=== PATIENT | male | born 1930 | race Caucasian/White ===

== ENCOUNTER 2017-09-02 23:35 | Inpatient (IN) ==
--- NOTE | 2017-09-03 00:18 | Emergency Department Note ---
GI Bleed HPI - General Chief complaint: Rectal Bleed Stated complaint: rectal bleeding Time Seen by Provider: 09/03/17 00:16 Source: patient Mode of arrival: ambulatory - History of Present Illness HPI Narrative: This 87-year-old gentleman comes emergency room with history of 3 episodes of blood in his stool this evening the first was with gross blood in nearly liquid stool at around 6 PM. Approximately an hour later he had a softer type of a bowel movement with some blood in it and a third episode a little later. These have not been associated with any dizziness or shortness of breath. He reports a colonoscopy 30 years ago that they did find some polyps. REVIEW OF SYSTEMS: No fevers chills or sweats. No chest pain. No shortness of breath. No abdominal pain or nausea or vomiting. He has had some constipation off and on the past and for this takes a stool softener. He recently had to have some stool dugout. He denies acid reflux. He denies dysuria. No back pain. He did have some leg pain that improved with water intake. No rashes. No anxiety or depression. - Related Data Home Medications Medication Instructions Recorded Confirmed aspirin 81 mg tablet,delayed 81 mg PO QDAY tab 12/21/14 08/28/17 release centrum silver See Dose Instructions PO QDAY 12/21/14 08/28/17 Previous Rx's Medication Instructions Recorded furosemide 40 mg tablet 40 mg PO .COMPLEX #90 tab 11/05/16 isosorbide mononitrate ER 60 mg 60 mg PO QAM #30 tab 11/05/16 tablet,extended release 24 hr clonidine HCl 0.2 mg tablet 0.2 mg PO BID #60 tab 11/16/16 niacin ER 500 mg tablet,extended 500 mg PO QHS #30 tab 11/20/16 release 24 hr potassium chloride ER 10 mEq 10 meq PO BID #60 tab 01/29/17 tablet,extended release atenolol 50 mg tablet 25 mg PO QAM #45 tab 07/04/17 diltiazem ER (XR/XT) 120 mg 120 mg PO QDAY 90 Days #90 cap 07/04/17 capsule,extended release 24 hr, controlled irbesartan 300 mg tablet 300 mg PO QDAY 90 Days #90 tab 07/04/17 tamsulosin 0.4 mg capsule 0.4 mg PO BID #180 cap 07/16/17 pravastatin 40 mg tablet 40 mg PO QDAY 90 Days #90 tab 07/29/17 doxycycline hyclate 100 mg tablet 100 mg PO BID #20 tab 08/28/17 furosemide 40 mg tablet 40 mg PO QDAY #5 tab 08/28/17 silver sulfadiazine 1 % topical 1 applic TOPICAL BID #50 g 08/28/17 cream fish oil See Label Instructions .ROUTE 08/29/17 .COMPLEX #90 move free 1 tab PO BID #60 08/29/17 Allergies Allergy/AdvReac Type Severity Reaction Status Date / Time mirabegron [From Myrbetriq] Allergy Intermediate Rash Verified 08/28/17 15:06 Past Medical History - Past Medical History Medical history: Reports: cancer (colon - partial colectomy. Basal cell CA multiple sites.), CHF, coronary artery disease, hyperlipidemia, hypertension, other (Bracycardia. BPH. Monoclonal gammopathy. Diverticulitis.). Denies: CVA Psychiatric history: Denies: anxiety, depression Surgical history ED: Reports: angioplasty/stent, colectomy (partial), coronary bypass (CABG) Family history: Reports: cancer (Brother with brain tumor. Brother with cardiovascular disease. Brother with prostate cancer who from this. Lymphoma in a sister.) - Social History smoking status: Former smoker Alcohol use: Reports: Rarely (Holiday and special occasions only.), Occasionally Drug use: Reports: none Course Vital Signs Temperature 97.0 F 09/02/17 23:36 Pulse Rate 72 09/02/17 23:36 Respiratory Rate 18 09/02/17 23:36 Blood Pressure 148/69 09/02/17 23:36 Pulse Oximetry (%) 97 09/02/17 23:36 Temperature 97.0 F 09/02/17 23:36 Pulse Rate 70 09/03/17 07:16 Respiratory Rate 16 09/03/17 07:16 Blood Pressure 166/61 09/03/17 07:16 Pulse Oximetry (%) 100 09/03/17 07:16 GI Bleed - [facility] Narrative Medical decision making narrative: 11:45 PM 09/02/17 This 87-year-old male comes in with describing hematochezia and melanotic stool and no other new symptoms. His initial evaluation includes an elevated BUN of 41 where his past year have been in the 30s. His creatinine is 2.0 but the past year been 1.9. His hemoglobin is 10.1 and this is lower than his recent past year of low-grade anemia in the 12's and previous to that 's. He does have chronic renal failure and a history of congestive heart failure etc. but no specific signs or symptoms of acute exacerbation of any of his other medical problems. He is otherwise fairly asymptomatic. He is not on any anticoagulants except for a baby aspirin daily. While in the emergency room has several additional episodes of bowel movements with mild to moderate amount of melanotic or black-red stool material. Also several times incontinent in bed with the same. Orthostatics were unremarkable. 1:00 AM 1 Liter of NS given. 6:25 AM Daughter reports patient lives alone, is sometimes incontinent or some difficulties with lasix in AM and making it to toilet, etc., illustrating difficulty of G-I colon clean-out would be impractical or inappropriate at home. 6:30 AM A 4 hour CBC demonstrates no change in his hemoglobin/hematocrit at 10.0 hemoglobin. 7:00 AM I spoke with GI doctor Dr. Ruiz, who agrees that patient needs further evaluation. He points out that there are signs indicating possible upper GI bleed versus lower GI bleed and that doing an EGD first seems reasonable with his other medical problems as this is less aggressive/invasive. With multiple medical problems, it is appropriate for him to be further evaluated by hospitalist and admitted to a monitored bed which is arranged for; Dr. Alvarez kindly accepts care of this patient. 7:15 AM Repeat exam includes jolly disposition, no vitals instability, and no pain; no further melena since around 4:12 AM. Comments on diagnoses: 1. -- It is uncertain and unspecified whether he has an upper GI or lower GI bleed but certainly has had one or the other. See above. 2. -- Has a history of hypercalcemia. His labs on admission were 10.5 so this was minimal. 3. -- His dermatitis of his legs and arms is most significant on his legs but is not acutely infectious/inflammatory in appearance. Reportedly he left his compression hose on for multiple days in a row without removing them and this contributed. He is on doxycycline twice daily or at least has been recently. 4. -- Has a history of a partial colectomy so presumably did have either multiple large polyps or precancerous or cancerous lesion. In his list of his malignant neoplasm of the colon. 5. -- No mention is made in his past medical history of hypoxia or nocturnal hypoxia. He was witnessed in bed to down to 87% while resting. Per his daughter, he normally sleeps in a recliner and not in bed in this due to his history of congestive heart failure and orthopnea. - Lab Data Result diagrams: 09/03/17 04:36 09/03/17 00:24 Lab Results 09/03/17 09/03/17 09/03/17 Range/Units 00:24 00:24 00:24 WBC 7.4 (4.5-11.0) K/mcL RBC 3.42 L (4.50-5.90) M/mcL Hgb 10.1 L (13.5-16.5) g/dL Hct 30.5 L (41.0-55.0) % MCV 89.2 (80.0-100.0) fL MCH 29.5 (26.0-34.0) pg MCHC 33.1 (31.0-36.0) g/dL RDW 14.7 H (11.5-14.5) % Plt Count 214 (140-440) K/mcL MPV 7.5 (7.4-10.4) fL Gran % 75.7 (38.0-78.0) % Lymph % (Auto) 12.1 L (15.5-49.0) % [place] % (Auto) 10.1 (1.0-12.0) % Eos % (Auto) 1.5 (0.0-7.0) % Baso % (Auto) 0.6 (0.0-2.0) % Gran # 5.7 (1.8-8.0) K/mcL Lymph # (Auto) 0.9 L (1.5-4.8) K/mcL [place] # (Auto) 0.7 (0.1-0.9) K/mcL Eos # (Auto) 0.1 (0.0-0.7) K/mcL Baso # (Auto) 0 (0.0-0.3) K/mcL PT 14.9 H (11.9-14.5) sec INR 1.2 H (0.9-1.1) APTT 44 H (20-37) sec Sodium 140 (133-145) mmol/L Potassium 4.1 (3.3-5.1) mmol/L Chloride 102 (96-108) mmol/L Carbon Dioxide 26 (22-30) mmol/L Anion Gap 12.0 (8-16) BUN 41 H (8-23) mg/dl Creatinine 2.0 H (0.7-1.2) mg/dl GFR Calculation 29 Glucose 126 H (70-105) mg/dL Calcium 10.5 H (8.6-10.4) mg/dl Total Bilirubin 0.4 (0.0-1.0) mg/dL AST 23 (0-37) U/l ALT 15 (0-40) U/l Alkaline Phosphatase 61 (39-117) U/L Total Protein 6.2 (5.9-8.4) gm/dL Albumin 3.3 (3.2-5.2) gm/dL Globulin 2.9 (2.2-3.7) gm/dL Albumin/Globulin Ratio 1.1 (1.0-2.3) 09/03/17 Range/Units 04:36 WBC 7.0 (4.5-11.0) K/mcL RBC 3.33 L (4.50-5.90) M/mcL Hgb 10.0 L (13.5-16.5) g/dL Hct 30.2 L (41.0-55.0) % MCV 90.8 (80.0-100.0) fL MCH 30.1 (26.0-34.0) pg MCHC 33.1 (31.0-36.0) g/dL RDW 15.8 H (11.5-14.5) % Plt Count 190 (140-440) K/mcL MPV 8.0 (7.4-10.4) fL Gran % 74.7 (38.0-78.0) % Lymph % (Auto) 13.0 L (15.5-49.0) % [place] % (Auto) 9.2 (1.0-12.0) % Eos % (Auto) 2.8 (0.0-7.0) % Baso % (Auto) 0.3 (0.0-2.0) % Gran # 5.2 (1.8-8.0) K/mcL Lymph # (Auto) 0.9 L (1.5-4.8) K/mcL [place] # (Auto) 0.6 (0.1-0.9) K/mcL Eos # (Auto) 0.2 (0.0-0.7) K/mcL Baso # (Auto) 0 (0.0-0.3) K/mcL PT (11.9-14.5) sec INR (0.9-1.1) APTT (20-37) sec Sodium (133-145) mmol/L Potassium (3.3-5.1) mmol/L Chloride (96-108) mmol/L Carbon Dioxide (22-30) mmol/L Anion Gap (8-16) BUN (8-23) mg/dl Creatinine (0.7-1.2) mg/dl GFR Calculation Glucose (70-105) mg/dL Calcium (8.6-10.4) mg/dl Total Bilirubin (0.0-1.0) mg/dL AST (0-37) U/l ALT (0-40) U/l Alkaline Phosphatase (39-117) U/L Total Protein (5.9-8.4) gm/dL Albumin (3.2-5.2) gm/dL Globulin (2.2-3.7) gm/dL Albumin/Globulin Ratio (1.0-2.3) Disposition Pt seen by [facility]/PA only: No Clinical Impression: Hematochezia, Melena, Hypertension, essential, Renal insufficiency, mild, History of partial colectomy, Hypercalcemia, Dermatitis CAD (coronary artery disease) Qualifiers: Coronary Disease-Associated Artery/Lesion type: unspecified vessel or lesion type [place] vs. transplanted heart: [place] heart Associated angina: without angina Qualified Code(s): I25.10 - Atherosclerotic heart disease of [place] coronary artery without angina pectoris CHF (congestive heart failure) Qualifiers: Heart failure type: unspecified Heart failure chronicity: chronic Qualified Code(s): I50.9 - Heart failure, unspecified Hyperlipidemia Qualifiers: Hyperlipidemia type: unspecified Qualified Code(s): E78.5 - Hyperlipidemia, unspecified Mitral valve regurgitation Qualifiers: Cardiac valve disease etiology: etiology unspecified Qualified Code(s): I34.0 - Nonrheumatic mitral (valve) insufficiency Disposition: Xfer As Inpt ([facility]) Condition: Fair Referrals: Rob Robison MD [Primary Care Provider] -
[2017-09-03 01:00] LABS: Basophils # (Auto) 0 K/mcL (0.0-0.3); Basophils % (Auto) 0.6 % (0.0-2.0); Eosinophils # (Auto) 0.1 K/mcL (0.0-0.7); Eosinophils % (Auto) 1.5 % (0.0-7.0); Granulocytes % (Auto) 75.7 % (38.0-78.0); Lymphocytes # (Auto) 0.9 K/mcL (1.5-4.8); Lymphocytes % (Auto) 12.1 % (15.5-49.0); Mean Cell Volume 89.2 fL (80.0-100.0); Mean Corpuscular HGB Conc 33.1 g/dL (31.0-36.0); Mean Corpuscular Hemoglobin 29.5 pg (26.0-34.0); Monocytes # (Auto) 0.7 K/mcL (0.1-0.9); Monocytes % (Auto) 10.1 % (1.0-12.0); Platelet Count 214 K/mcL (140-440); RBC 3.42 M/mcL (4.50-5.90); Red Cell Distribution Width 14.7 % (11.5-14.5)
[2017-09-03 01:10] LABS: ALT/SGPT 15 U/l (0-40); Albumin 3.3 gm/dL (3.2-5.2); Albumin/Globulin Ratio 1.1 (1.0-2.3); Alkaline Phosphatase 61 U/L (39-117); Blood Urea Nitrogen 41 mg/dl (8-23)
[2017-09-03] MEDS ORDERED: 0.9 % SODIUM CHLORIDE 1,000 ML IV ONE (01:25)
[2017-09-03 05:16] LABS: Basophils # (Auto) 0 K/mcL (0.0-0.3); Basophils % (Auto) 0.3 % (0.0-2.0); Eosinophils # (Auto) 0.2 K/mcL (0.0-0.7); Eosinophils % (Auto) 2.8 % (0.0-7.0); Granulocytes % (Auto) 74.7 % (38.0-78.0); Lymphocytes # (Auto) 0.9 K/mcL (1.5-4.8); Mean Cell Volume 90.8 fL (80.0-100.0); Mean Corpuscular HGB Conc 33.1 g/dL (31.0-36.0); Mean Corpuscular Hemoglobin 30.1 pg (26.0-34.0); Monocytes # (Auto) 0.6 K/mcL (0.1-0.9); Monocytes % (Auto) 9.2 % (1.0-12.0); Platelet Count 190 K/mcL (140-440); RBC 3.33 M/mcL (4.50-5.90); Red Cell Distribution Width 15.8 % (11.5-14.5)
[2017-09-03] MEDS ORDERED: PANTOPRAZOLE 40 MG VIAL IV ONE ×2 (07:33→07:36)
--- NOTE | 2017-09-03 08:10 | Internal Med History&Physical ---
Medical - H&P: HPI Patient information: Note initiated : 09/03/17 at 8:07 am Service Date, if different from initiated Date: [] Patient: Laz Junior a 87 y/o M admitted on for Rectal Bleed. Chief Complaint: [] History of present illness: Mr. Junior is a 87 year old M ith history of heart failure, presents to the emergency room for evaluation after a bloody bowel movement. The patient notes that he noticed blood in his stools yesterday evening around 6 PM. He is at 2 more episodes since then. The stools are mixed and blurred, appears to be dark maroon color. The patient drove himself to the emergency for further evaluation. It seems like he had bowel movements mixed with blood given in the emergency room. He is unable to quantify the amount of blood loss or tell me if there were any blood clots in the stool. He is unable to clearly explain if he has any dark melanotic stools but does note his stools are mckinley pie in color. The patient admits to having some dizziness when he tries to stand up, but no other acute symptoms. He denies any headache, changes in vision or hearing or difficulty in swallowing , he denies any chest pain or acute shortness of breath, no nausea no abdominal pain no vomiting, he usually suffers from constipation, but thought he was having some diarrhea with the bloody stools. The patient has chronic joint pains but no acute joint swelling or skin rashes. He is trying to work with his doctor for lower extremity infection right more than the left extremity. The patient denies any urinary complaints. Denies any fever or chills. He takes a baby aspirin, he is not on Coumadin, he takes Tylenol for pain and denies any use of NSAID use, denies active use of alcohol, denies any dyspeptic symptoms recently In the emergency room the patient was noted to be mildly anemic, approximately 3 g of hemoglobin from his last hemoglobin check. The patient has negative orthostatics, hemodynamically was noted to be stable. Dr. JOSE will plan to do an EGD scoping today and then likely a colonoscopy down the line. IV PPIs initiated. Given his GI bleed, nearly 3 g drop in hemoglobin and significant comorbidities and advanced age he will be admitted to PCU status for close monitoring All systems: reviewed and no additional remarkable complaints except as stated ( as per HPI) Medical - H&P: PMH Medical history: Medical History (Last Reviewed 07/16/17 @ 11:04 by Summer Lock RN) UTI (urinary tract infection) (Resolved) CHF (congestive heart failure) (Chronic) Bradycardia (Chronic) Urinary hesitancy due to benign prostatic hyperplasia (Chronic) Monoclonal gammopathy (Chronic) Hypertension, essential (Chronic) Hyperlipidemia (Chronic) Diverticulitis of colon (Chronic) Malignant neoplasm of rectosigmoid (colon) (Resolved) CAD (coronary artery disease) (Chronic) Basal cell carcinoma (Chronic) Surgical history: Past Surgical History (Last Reviewed 07/16/17 @ 11:04 by Summer Lock RN) History of colonoscopy with polypectomy (Resolved) Status post biopsy of skin (Resolved) Status post Mohs surgery (Resolved 10/12/14) History of coronary artery bypass graft (Resolved) History of colectomy (Resolved) History of cardiac catheterization (Resolved 03/16/98) History of angioplasty (Resolved) Pertinent family history: Family History (Last Reviewed 07/16/17 @ 11:04 by Summer Lock RN) Brother (younger) Family history of malignant neoplasm in brother Brother (older) Family history of cardiovascular disease Brother Family history of malignant neoplasm of prostate Sister Family history of malignant lymphatic neoplasm Medical - H&P: Meds Home Medications Medication Instructions Recorded Confirmed Type aspirin 81 mg tablet,delayed 81 mg PO QDAY tab 12/21/14 08/28/17 History release centrum silver See Dose Instructions PO QDAY 12/21/14 08/28/17 History furosemide 40 mg tablet 40 mg PO .COMPLEX #90 tab 11/05/16 08/28/17 Rx isosorbide mononitrate ER 60 mg 60 mg PO QAM #30 tab 11/05/16 08/28/17 Rx tablet,extended release 24 hr clonidine HCl 0.2 mg tablet 0.2 mg PO BID #60 tab 11/16/16 08/28/17 Rx niacin ER 500 mg tablet,extended 500 mg PO QHS #30 tab 11/20/16 08/28/17 Rx release 24 hr potassium chloride ER 10 mEq 10 meq PO BID #60 tab 01/29/17 08/28/17 Rx tablet,extended release atenolol 50 mg tablet 25 mg PO QAM #45 tab 07/04/17 08/28/17 Rx diltiazem ER (XR/XT) 120 mg 120 mg PO QDAY 90 Days #90 cap 07/04/17 08/28/17 Rx capsule,extended release 24 hr, controlled irbesartan 300 mg tablet 300 mg PO QDAY 90 Days #90 tab 07/04/17 08/28/17 Rx tamsulosin 0.4 mg capsule 0.4 mg PO BID #180 cap 07/16/17 08/28/17 Rx pravastatin 40 mg tablet 40 mg PO QDAY 90 Days #90 tab 07/29/17 08/28/17 Rx doxycycline hyclate 100 mg tablet 100 mg PO BID #20 tab 08/28/17 08/28/17 Rx furosemide 40 mg tablet 40 mg PO QDAY #5 tab 08/28/17 08/28/17 Rx silver sulfadiazine 1 % topical 1 applic TOPICAL BID #50 g 08/28/17 08/28/17 Rx cream fish oil See Label Instructions .ROUTE 08/29/17 Rx .COMPLEX #90 move free 1 tab PO BID #60 08/29/17 Rx Allergies Allergy/AdvReac Type Severity Reaction Status Date / Time mirabegron [From Myrbetriq] Allergy Intermediate Rash Verified 08/28/17 15:06 Medical - H&P: Exam - Constitutional Vitals: Temp Pulse Resp BP Pulse Ox 99.9 F H 65 20 167/74 98 09/03/17 07:48 09/03/17 07:48 09/03/17 07:48 09/03/17 07:48 09/03/17 07:48 Exam: GENERAL: The patient is a well-developed, well-nourished in no apparent distress. Is alert and oriented x3. obese individual VITAL SIGNS: Reviewed and as noted elsewhere. HEENT: Head is normocephalic and atraumatic. Extraocular muscles are intact. Pupils are equal, round, and reactive to light. Nares appeared normal. Mouth appears any without lesions. Mucous membranes are dry NECK: Normal to inspection, Supple, No lymphadenopathy or thyromegaly. LUNGS: Air entry equal on both sides, no wheezing, crackles or rhonchi noted. No accessory muscles of respiration HEART: Regular rate and rhythm normal, S1 and S2 heard, no Gallop, S3 or Rub Noted, systolic murmur in mirtral region. ABDOMEN: Soft, nontender, and nondistended. Positive bowel sounds. No hepatosplenomegaly was noted. had maroon stools in the bathroom. EXTREMITIES: No cyanosis, clubbing, rash, jovani pedal edema+++, Right ower extremity erythema, flaked skin, left lower extrmity flaked skin and some erythema. see picutres in chart NEUROLOGIC: Cranial nerves II through XII are grossly intact. Motor and Sensory System Grossly Intact PSYCHIATRIC: Normal affect, Normal Mood. Appropriate Behavior. SKIN: No ulceration or wounds noted, No jaundice, No rash noted. (except in legs see above) Medical - H&P: Reslt - Labs CBC & Chem 7: 09/03/17 04:36 09/03/17 00:24 Labs: Short CBC 09/03/17 09/03/17 Range/Units 00:24 04:36 WBC 7.4 7.0 (4.5-11.0) K/mcL Hgb 10.1 L 10.0 L (13.5-16.5) g/dL Hct 30.5 L 30.2 L (41.0-55.0) % Plt Count 214 190 (140-440) K/mcL BMP 09/03/17 00:24 Sodium 140 Potassium 4.1 Chloride 102 Carbon Dioxide 26 BUN 41 H Creatinine 2.0 H Glucose 126 H Calcium 10.5 H Liver Function 09/03/17 Range/Units 00:24 Total Bilirubin 0.4 (0.0-1.0) mg/dL AST 23 (0-37) U/l ALT 15 (0-40) U/l Alkaline Phosphatase 61 (39-117) U/L Albumin 3.3 (3.2-5.2) gm/dL Medical - H&P: A/P - Narrative A/P Narrative: A/P Acute GI bleed: Likely lower GI bleed, but cannot rule out upper GIB for sure, he has elevated bun but this is chr elevated from CKD. IV PPI BID for now, Dr Mitchell to perform EGD today. Likely colonoscopy if egd is neg, trend h/h for now. monitor in PCU CHF: not in acute failure, but does have lower extremity edema, able to lie down flat, get cxr chest, IV lasix if noted to congestion. Resume irbesartan once home meds verified. CAD: Hold ASA for now, try to continue isosorbide, beta blockers and statins. CKD/ Hypercalcemia: Chr issue, creat at near baseline, monitor renal function and electrolytes HTN: Resume home meds once bp is noted to be stable. HLD: continue statin DVT SCD Lower extremity wounds: topical silvadene cream for now, resume doxycycline when verified Full code for now. Social History - Tobacco smoking status: Former smoker - Alcohol alcohol intake frequency: holiday/special occasion only - Substance use substance use type: does not use
[2017-09-03] MEDS ORDERED: ONDANSETRON 4 MG/2 ML VIAL IV PRN (09:34)
[2017-09-03] MEDS: SILVER SULFADIAZINE CREAM.TOP 25GM TOPICAL SCH ×2 (10:04→21:40)
[2017-09-03] MEDS: PANTOPRAZOLE 40 MG VIAL IV SCH ×2 (10:04→21:41)
[2017-09-03] MEDS: 0.9 % SODIUM CHLORIDE 10 ML SYRINGE IV SCH ×2 (13:37→21:43)
[2017-09-03] MEDS ORDERED: PROPOFOL 200 MG/20 ML VIAL IV SCH (14:30)
[2017-09-03] MEDS ORDERED: MIDAZOLAM 2 MG/2 ML VIAL IV SCH (14:30)
[2017-09-03] MEDS ORDERED: MIDAZOLAM 2 MG/2 ML VIAL ONE (17:59)
[2017-09-03] MEDS ORDERED: PROPOFOL 20 ML IV ONE (17:59)
[2017-09-03] MEDS ORDERED: PROPOFOL 0 ML IV ONE (17:59)
[2017-09-03] MEDS: cloNIDine HCL 0.1 MG TABLET PO SCH (21:42)
[2017-09-03] MEDS: SIMVASTATIN 20 MG TABLET PO SCH (21:42)
[2017-09-03] MEDS: ACETAMINOPHEN 325 MG TABLET PO PRN (22:28)
[2017-09-04] MEDS: ACETAMINOPHEN 325 MG TABLET PO PRN ×2 (04:43→20:25)
[2017-09-04] MEDS: cloNIDine HCL 0.1 MG TABLET PO SCH ×3 (05:10→20:25)
[2017-09-04] MEDS: ISOSORBIDE MONONITRATE 60 MG TAB.XL.24H PO SCH ×2 (05:11→10:23)
[2017-09-04] MEDS: PANTOPRAZOLE 40 MG VIAL IV SCH ×2 (05:12→07:47)
[2017-09-04] MEDS: TAMSULOSIN 0.4 MG CAPSULE PO SCH ×2 (05:12→10:23)
[2017-09-04] MEDS ORDERED: PEG 3350/NA SULF,BICARB,CL/KCL 4,000 ML ORAL.SOL ONE (05:24)
[2017-09-04] MEDS ORDERED: PEG 3350/NA SULF,BICARB,CL/KCL 4,000 ML ORAL.SOL PO ONE (05:30)
[2017-09-04 06:04] LABS: Basophils # (Auto) 0 K/mcL (0.0-0.3); Basophils % (Auto) 0.4 % (0.0-2.0); Eosinophils # (Auto) 0.4 K/mcL (0.0-0.7); Granulocytes % (Auto) 73.7 % (38.0-78.0); Lymphocytes # (Auto) 0.9 K/mcL (1.5-4.8); Lymphocytes % (Auto) 12.6 % (15.5-49.0); Mean Cell Volume 90.6 fL (80.0-100.0); Mean Corpuscular HGB Conc 33.4 g/dL (31.0-36.0); Mean Corpuscular Hemoglobin 30.2 pg (26.0-34.0); Monocytes # (Auto) 0.6 K/mcL (0.1-0.9); Monocytes % (Auto) 8.3 % (1.0-12.0); Platelet Count 192 K/mcL (140-440); Red Cell Distribution Width 15.4 % (11.5-14.5)
[2017-09-04 06:37] LABS: ALT/SGPT 13 U/l (0-40); Albumin 2.8 gm/dL (3.2-5.2); Alkaline Phosphatase 45 U/L (39-117); Bilirubin,Direct < 0.2 mg/dL (0.0-0.3); Blood Urea Nitrogen 34 mg/dl (8-23); Gamma Glutamyl Transpeptidase 15 U/L (8-61); Uric Acid 8.4 mg/dL (2.5-8.0)
--- NOTE | 2017-09-04 07:01 | Operative Note ---
DATE OF OPERATION: 09/03/2017 PREPROCEDURE DIAGNOSIS: Upper GI bleed. POSTPROCEDURE DIAGNOSES: 1. Lower GI bleed. 2. Gastritis. 3. EGitis,? reflux. PROCEDURE: Esophagogastroduodenoscopy with biopsy. INSTRUMENT USED: Olympus TAYLOR [id number] endoscope. SPECIMENS OBTAINED: Biopsies from antrum for CLOtest. Biopsies from distal esophagus,? reflux. CLOtest RESULTS: Negative INDICATIONS: The patient is an 87-year-old gentleman whose primary care physician is Dr. Robison. The patient is admitted under the courtesy of one of the hospitalists, Dr. Alvarez. The patient has had some bleeding. Sometimes this sounds like the material is fairly dark that comes through the rectum, other times it is fairly reddish. He did, however, have a 10 point increase in the BUN in the recent past from 30 to about 40. He does take some aspirin. He is uncertain of his complete medication list. Since some evidence suggests may have an upper GI bleed and the preparation is fairly simple I chose to start with an EGD. INFORMED CONSENT: The procedure was reviewed with the patient. The patient had no further questions and accepts the risks and benefits thereof. One of the risks that were discussed included . Additional risks that were also discussed included bleeding, reaction to medication, possible perforation and possible need for surgery. IV MEDICATIONS USED: Versed 1, propofol 80 mg. FINDINGS: ESOPHAGUS: Proximal, mid and distal esophagus appeared fairly normal. In the distal esophagus, there were an increased number of fine blood vessels which is consistent with, but not necessarily diagnostic of, reflux. Biopsies were taken from the distal esophagus to evaluate for evidence of reflux esophagitis. EG junction was at about 40 cm. There was mild erythema and edema noted. No significant hiatal hernia was seen. STOMACH: Cardia few areas of erythema were noted. Otherwise, the fundus and body appeared fairly normal. Antrum: There were some prepyloric erythema and edema. No ulcers were seen. No blood was seen. Biopsies were taken to evaluate for evidence of Helicobacter. PYLORUS: Normal. DUODENUM: This appeared normal. RECOMMENDATIONS: Colonoscopy is planned for tomorrow after bowel prep. We may consider benefits and following antireflux measures. He may benefit from acid suppression for about 2 months and then discontinue the acid suppression. I see no harm at this time in continuing the aspirin 81 mg a day. If, however, he has a bleeding site in the colon that seems to have a high chance of continued bleeding maybe the aspirin should be held for a short time. SEDATION TIME: 18:05 to 18:45. Please refer to the preprocedure nurse's notes, procedure flowsheet, procedure record, and post-procedure assessment for details of the sedation including the pre-, intra-and post-service work. CRD:facundo Job ID: [id number] Doc ID: [id number] Shankar MALLORY
[2017-09-04] MEDS: 0.9 % SODIUM CHLORIDE 10 ML SYRINGE IV SCH ×3 (07:48→22:00)
[2017-09-04] MEDS ORDERED: PRAVASTATIN 40 MG TABLET PO SCH (09:00)
[2017-09-04] MEDS: SILVER SULFADIAZINE CREAM.TOP 25GM TOPICAL SCH ×3 (10:24→20:26)
[2017-09-04 14:50] LABS: Basophils # (Auto) 0 K/mcL (0.0-0.3); Basophils % (Auto) 0.4 % (0.0-2.0); Eosinophils # (Auto) 0.3 K/mcL (0.0-0.7); Eosinophils % (Auto) 4.6 % (0.0-7.0); Granulocytes % (Auto) 74.4 % (38.0-78.0); Lymphocytes % (Auto) 13.2 % (15.5-49.0); Mean Cell Volume 90.7 fL (80.0-100.0); Mean Corpuscular HGB Conc 33.3 g/dL (31.0-36.0); Mean Corpuscular Hemoglobin 30.2 pg (26.0-34.0); Monocytes # (Auto) 0.5 K/mcL (0.1-0.9); Monocytes % (Auto) 7.4 % (1.0-12.0); Platelet Count 191 K/mcL (140-440); RBC 2.82 M/mcL (4.50-5.90); Red Cell Distribution Width 15.4 % (11.5-14.5)
--- NOTE | 2017-09-04 15:38 | Internal Med Progress Note ---
Medical - PN: Subj Patient information: Note initiated : 09/04/17 at 3:34 pm Service Date, if different from initiated Date: [] Patient: Laz Junior 87 y/o M admitted on 09/03/17 for Rectal Bleed. Interval history: 09/03: Mr. Junior is a 87 year old M ith history of heart failure, presents to the emergency room for evaluation after a bloody bowel movement. The patient notes that he noticed blood in his stools yesterday evening around 6 PM. He is at 2 more episodes since then. The stools are mixed and blurred, appears to be dark maroon color. The patient drove himself to the emergency for further evaluation. It seems like he had bowel movements mixed with blood given in the emergency room. He is unable to quantify the amount of blood loss or tell me if there were any blood clots in the stool. He is unable to clearly explain if he has any dark melanotic stools but does note his stools are mckinley pie in color. The patient admits to having some dizziness when he tries to stand up, but no other acute symptoms. He denies any headache, changes in vision or hearing or difficulty in swallowing , he denies any chest pain or acute shortness of breath, no nausea no abdominal pain no vomiting, he usually suffers from constipation, but thought he was having some diarrhea with the bloody stools. The patient has chronic joint pains but no acute joint swelling or skin rashes. He is trying to work with his doctor for lower extremity infection right more than the left extremity. The patient denies any urinary complaints. Denies any fever or chills. He takes a baby aspirin, he is not on Coumadin, he takes Tylenol for pain and denies any use of NSAID use, denies active use of alcohol, denies any dyspeptic symptoms recently In the emergency room the patient was noted to be mildly anemic, approximately 3 g of hemoglobin from his last hemoglobin check. The patient has negative orthostatics, hemodynamically was noted to be stable. EGD (by dr Mitchell): no evidence of bleeding noted. 09/04: Still melena. Hb 8.5, down from 10 yesterday Awaiting colonoscopy. - Constitutional Vitals: Vital Signs Temp Pulse Resp BP Pulse Ox 97.9 F 59 L 13 125/49 96 09/04/17 12:01 09/04/17 13:01 09/04/17 15:01 09/04/17 15:01 09/04/17 13:01 Period Temp Pulse Resp BP Sys/Gutierrez Pulse Ox Last 24 Hr 97.9 F-99.3 F 56-83 12-25 102-175/41-140 93-100 Intake and Output 09/04/17 09/04/17 09/04/17 05:59 13:59 21:59 Intake Total 450 / 450 Output Total 500 / 500 1100 / 1100 750 / 750 Balance -50 / -50 -1100 / -1100 -750 / -750 Weight 198 lb Patient Weight 09/05/17 05:59 Weight 198 lb Intake & Output: Intake & Output 09/04/17 09/04/17 09/04/17 05:59 13:59 21:59 Intake Total 450 / 450 Output Total 500 / 500 1100 / 1100 750 / 750 Balance -50 / -50 -1100 / -1100 -750 / -750 Weight 198 lb Intake: Oral 450 / 450 Output: Void Amount 500 / 500 Urine/Stool Mix 500 / 500 Stool 600 / 600 750 / 750 Other: Stool Size Large Stool Color Bright Red Blood Dark Red Blood Stool Consistency Liquid Watery # Voids 1 General appearance: no acute distress - Respiratory Respiratory exam: Present: normal respiratory exam - Cardiovascular Cardiovascular exam: Present: normal rate and rhythm - GI/Abdominal GI/Abdominal exam: Present: normal bowel sounds, soft - Extremities Exam Extremities exam: Present: normal inspection. Absent: calf tenderness Medical - PN: Obj Da - Labs CBC & Chem 7: 09/04/17 14:05 09/04/17 03:50 Labs: Abnormal Lab Results 09/04/17 09/04/17 09/04/17 14:05 03:50 03:50 RBC 2.82 L 2.90 L Hgb 8.5 L 8.8 L Hct 25.6 L 26.3 L RDW 15.4 H 15.4 H Lymph % (Auto) 13.2 L 12.6 L Lymph # (Auto) 1.0 L 0.9 L PT INR APTT BUN 34 H Creatinine 1.4 H Glucose Calcium Uric Acid 8.4 H Total Protein 5.6 L Albumin 2.8 L 09/03/17 09/03/17 09/03/17 20:56 16:08 10:16 RBC Hgb 9.5 L 10.1 L 10.0 L Hct 28.5 L 30.1 L 30.2 L RDW Lymph % (Auto) Lymph # (Auto) PT INR APTT BUN Creatinine Glucose Calcium Uric Acid Total Protein Albumin 09/03/17 09/03/17 09/03/17 04:36 00:24 00:24 RBC 3.33 L Hgb 10.0 L Hct 30.2 L RDW 15.8 H Lymph % (Auto) 13.0 L Lymph # (Auto) 0.9 L PT 14.9 H INR 1.2 H APTT 44 H BUN 41 H Creatinine 2.0 H Glucose 126 H Calcium 10.5 H Uric Acid Total Protein Albumin 09/03/17 00:24 RBC 3.42 L Hgb 10.1 L Hct 30.5 L RDW 14.7 H Lymph % (Auto) 12.1 L Lymph # (Auto) 0.9 L PT INR APTT BUN Creatinine Glucose Calcium Uric Acid Total Protein Albumin Meds: Medications Acetaminophen (Tylenol) 650 mg PO Q4-6HP PRN PRN Reason: PAIN/FEVER > 101 Last Admin: 09/04/17 04:43 Dose: 650 mg Clonidine HCl (Catapres) 0.2 mg PO BID [facility] Last Admin: 09/04/17 10:23 Dose: Not Given Isosorbide Mononitrate (Imdur) 60 mg PO QAM [facility] Last Admin: 09/04/17 10:23 Dose: Not Given Ondansetron HCl (Zofran) 4 mg IV Q4-6HP PRN PRN Reason: Nausea And Vomiting Pantoprazole Sodium (Protonix) 40 mg IV BID [facility] Last Admin: 09/04/17 07:47 Dose: 40 mg Silver Sulfadiazine (Silvadene) 1 dose TOPICAL DAILY [facility] Last Admin: 09/04/17 10:24 Dose: Not Given Silver Sulfadiazine (Silvadene) 1 dose TOPICAL BID [facility] Last Admin: 09/04/17 10:24 Dose: Not Given Simvastatin (Zocor) 20 mg PO HS [facility] Last Admin: 09/03/17 21:42 Dose: 20 mg Sodium Chloride (Saline Flush) 10 ml IV Q8 [facility] Last Admin: 09/04/17 07:48 Dose: 10 ml Tamsulosin HCl (Flomax) 0.4 mg PO DAILY [facility] Last Admin: 09/04/17 10:23 Dose: Not Given Medical - PN: A/P - Time Spent With Patient Total time spent is greater than 50% in coordination of care (as documented) at patient's floor/unit and/or counseling patient: less than 15 minutes - Narrative A/P Narrative: Acute GI bleed: Likely lower GI bleed, but cannot rule out upper GIB for sure, he has elevated bun but this is chr elevated from CKD. IV PPI BID. EGD 09/03: wnl. Awaiting colonoscopy. CHF: no evidence currently. CAD: Hold ASA for now, try to continue isosorbide, beta blockers and statins. CKD/ Hypercalcemia: Chr issue, creat at near baseline, monitor renal function and electrolytes HTN: Resume home meds once bp is noted to be stable. HLD: continue statin DVT SCD Medical - PN: Qual - VTE Deep Vein Thrombosis/Pulmonary Embolism Present on Admission: No
[2017-09-04] MEDS ORDERED: MIDAZOLAM 2 MG/2 ML VIAL IV SCH (16:15)
[2017-09-04] MEDS ORDERED: PROPOFOL 200 MG/20 ML VIAL IV SCH (16:15)
[2017-09-04] MEDS ORDERED: EPINEPHrine 1 MG/ML AMPUL IJ ONE (17:12)
[2017-09-04] MEDS: SIMVASTATIN 20 MG TABLET PO SCH (20:25)
[2017-09-05] MEDS: SILVER SULFADIAZINE CREAM.TOP 25GM TOPICAL SCH ×3 (00:19→21:45)
[2017-09-05] MEDS: ACETAMINOPHEN 325 MG TABLET PO PRN ×2 (01:11→18:10)
[2017-09-05] MEDS: 0.9 % SODIUM CHLORIDE 10 ML SYRINGE IV SCH ×3 (05:35→21:28)
[2017-09-05 06:16] LABS: Basophils # (Auto) 0 K/mcL (0.0-0.3); Basophils % (Auto) 0.4 % (0.0-2.0); Eosinophils # (Auto) 0.3 K/mcL (0.0-0.7); Eosinophils % (Auto) 3.9 % (0.0-7.0); Lymphocytes # (Auto) 0.8 K/mcL (1.5-4.8); Lymphocytes % (Auto) 12.2 % (15.5-49.0); Mean Cell Volume 91.5 fL (80.0-100.0); Mean Corpuscular HGB Conc 32.8 g/dL (31.0-36.0); Monocytes # (Auto) 0.6 K/mcL (0.1-0.9); Monocytes % (Auto) 8.5 % (1.0-12.0); Platelet Count 188 K/mcL (140-440); RBC 2.45 M/mcL (4.50-5.90); Red Cell Distribution Width 15.4 % (11.5-14.5)
[2017-09-05 06:42] LABS: ALT/SGPT 12 U/l (0-40); Albumin 2.6 gm/dL (3.2-5.2); Alkaline Phosphatase 44 U/L (39-117); Bilirubin,Direct < 0.2 mg/dL (0.0-0.3); Blood Urea Nitrogen 25 mg/dl (8-23); Gamma Glutamyl Transpeptidase 15 U/L (8-61); Uric Acid 8.3 mg/dL (2.5-8.0)
--- NOTE | 2017-09-05 07:15 | Operative Note ---
DATE OF OPERATION: 09/04/2017 PREPROCEDURE DIAGNOSIS: Lower GI bleed. POSTPROCEDURE DIAGNOSES: 1. Lower GI bleed secondary to diverticulum right side-ascending colon. 2. Diverticulosis. 3. Hemorrhoids. PROCEDURE: Colonoscopy with control of bleeding. INSTRUMENT USED: Olympus TAYLOR [id number] colonoscope. SPECIMENS OBTAINED: None. INDICATIONS FOR PROCEDURE: The patient is an 87-year-old gentleman whose primary care physician is Dr. Robison. The patient did have some GI bleeding. He had a 10-point increase in the BUN. There was some report of some dark stool that raised concern regarding melena. EGD was accomplished yesterday which showed minimal gastritis and minimal inflammation at the EG junction. Decision was made to proceed with bowel prep and a colonoscopy. INFORMED CONSENT: The procedure was reviewed with the patient. The patient had no further questions and accepts the risks and benefits thereof. One of the risks that were discussed included . Additional risks that were also discussed included bleeding, reaction to medication, possible perforation and possible need for surgery. IV MEDICATIONS USED: Versed 1 and propofol 160 mg. FINDINGS: RECTUM: Hemorrhoids were noted. These did not appear to be bleeding. SIGMOID COLON/DESCENDING COLON: Several diverticula were noted. No significant blood was noted and no bleeding site was found. SPLENIC FLEXURE/TRANSVERSE COLON: Normal. HEPATIC FLEXURE: Normal. ASCENDING COLON: In the distal portion of the ascending colon, there was fresher red blood and there was a large clot noted. This was washed at the proximal portion. The bleeding site seemed to be from a diverticulum. This area was injected with about 5 or 6 mL of hypertonic saline/epinephrine mixture. Two clips were placed on the diverticulum that was presumed to be the bleeding source. Proximal to this area there was very little blood. CECUM: This appeared normal. TERMINAL ILEUM: This was inspected for a very short distance. Terminal ileum tissue that was visualized appeared normal. RECOMMENDATIONS: Diet can be allowed and increased as tolerated. Eventually, he could go to a high fiber diet. 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 If he tolerates and enjoys nuts, seeds, and popcorn he may eat them with in several days to a few weeks. His regular medication can be resumed. He can be discharged from the hospital when he is clinically stable for other reasons and he tolerates a diet and there is no significant bleeding and the hemoglobin is fairly stable. I do not see any great need for followup of colonoscopy or EGD at this time. See EGD report regarding short term acid suppression. SEDATION TIME: 16:50 to 17:45 Please refer to the preprocedure nurse's notes, procedure flowsheet, procedure record, and post-procedure assessment for details of the sedation including the pre-, intra-and post-service. CRD:[email or web address] Job ID: [id number] Doc ID: [id number] Shankar Robison MD
[2017-09-05] MEDS ORDERED: PANTOPRAZOLE 40 MG TABLET PO SCH (07:30)
[2017-09-05] MEDS ORDERED: 0.9 % SODIUM CHLORIDE 250 ML IV SCH (08:30)
[2017-09-05] MEDS: PANTOPRAZOLE 40 MG TABLET PO SCH (08:35)
[2017-09-05] MEDS: cloNIDine HCL 0.1 MG TABLET PO SCH ×2 (08:36→21:27)
[2017-09-05] MEDS: ISOSORBIDE MONONITRATE 60 MG TAB.XL.24H PO SCH (08:36)
[2017-09-05] MEDS: TAMSULOSIN 0.4 MG CAPSULE PO SCH (08:36)
[2017-09-05] MEDS ORDERED: SILVER SULFADIAZINE CREAM.TOP 25GM TOPICAL SCH (09:00)
--- NOTE | 2017-09-05 12:32 | Surgical Pathology Report ---
HISTOLOGY SPECIMEN MICROSCOPIC DIAGNOSIS ESOPHAGUS, DISTAL, BIOPSY: -- SQUAMOUS MUCOSA WITH NO DIAGNOSTIC ALTERATIONS. -- NO INTRAEPITHELIAL NEUTROPHILS OR EOSINOPHILS IDENTIFIED. (DMT:juany) CLINICAL HISTORY Rectal bleed. GROSS DESCRIPTION Received in formalin labeled distal esophageal biopsy, are two clayton-zapata tissue fragments 0.5 and 0.7 cm. Totally submitted - one cassette. (GAS:sln) Electronically Signed by: Paulo Merritt M.D.
--- NOTE | 2017-09-05 15:48 | Discharge Summary ---
Medical - DS: Prov Patient information: Note initiated : 09/05/17 at 3:40 pm Service Date, if different from initiated Date: [] Patient: Laz Junior 87 y/o M admitted on 09/03/17 for Rectal Bleed. Chief Complaint: [] Date of admission: 09/03/17 09:02 Discharge date: 09/05/17 Primary care physician: Rob Robison Consults: 09/03/17 07:14 Consult to Physician [CONS] Stat Comment: gi bleed Consulting Provider: Shankar Mitchell Reason For Exam: Physician to Consult 09/03/17 07:15 Consult to Physician [CONS] Stat Comment: gi bleed Consulting Provider: Duane Alvarez Reason For Exam: Physician to Consult Medical - DS: Meds - Discharge Medications Prescriptions: Furosemide [Lasix] 40 mg PO DAILY #30 tablet Pantoprazole [Protonix] 40 mg PO HS #60 tab Active and Home Medications: Home Medications aspirin 81 mg tablet,delayed release 81 mg PO QDAY tab 12/21/14 [History Confirmed 09/03/17 Last Taken 09/02/17 0600] isosorbide mononitrate ER 60 mg tablet,extended release 24 hr 60 mg PO QAM #30 tab 11/05/16 [Rx Confirmed 09/03/17 Last Taken 09/02/17 06:00] clonidine HCl 0.2 mg tablet 0.2 mg PO BID #60 tab 11/16/16 [Rx Confirmed Last Taken 09/02/17 20:00 0.2] niacin ER 500 mg tablet,extended release 24 hr 500 mg PO QHS #30 tab 11/20/16 [ Rx Confirmed 09/03/17 Last Taken Unknown] potassium chloride ER 10 mEq tablet,extended release 10 meq PO BID #60 tab 01/29 [Rx Confirmed 09/03/17 Last Taken 09/02/17 06:00] atenolol 50 mg tablet 25 mg PO QAM #45 tab 07/04/17 [Rx Confirmed 09/03/17 Last Taken 09/02/17 06:00 25] diltiazem ER (XR/XT) 120 mg capsule,extended release 24 hr, controlled 120 mg PO QDAY 90 Days #90 cap 07/04/17 [Rx Confirmed 09/03/17 Last Taken 09/02/17 06: 00] irbesartan 300 mg tablet 300 mg PO QDAY 90 Days #90 tab 07/04/17 [Rx Confirmed 09/03/17 Last Taken 09/02/17 06:00] pravastatin 40 mg tablet 40 mg PO QDAY 90 Days #90 tab 07/29/17 [Rx Confirmed Last Taken 09/02/17 20:00] doxycycline hyclate 100 mg tablet 100 mg PO BID #20 tab 08/28/17 [Rx Confirmed 09/03/17 Last Taken 09/02/17 06:00] silver sulfadiazine 1 % topical cream 1 applic TOPICAL BID #50 g 08/28/17 [Rx Confirmed 09/03/17 Last Taken 09/03/17 12:00] Furosemide [Lasix] 40 mg PO BID 09/03/17 [History Confirmed 09/03/17 Last Taken 09/02/17 06:00] Multivitamin [Once Daily] 1 each PO DAILY 09/03/17 [History Confirmed 09/03/17 Last Taken Unknown] Tamsulosin HCl [Flomax] 0.4 mg PO DAILY 09/03/17 [History Confirmed 09/03/17 Last Taken 09/02/17 06:00] Medical - DS: Hosp Hospital course: Mr. Junior is a 87 year old M ith history of heart failure, presents to the emergency room for evaluation after a bloody bowel movement. The patient notes that he noticed blood in his stools yesterday evening around 6 PM. He is at 2 more episodes since then. The stools are mixed and blurred, appears to be dark maroon color. The patient drove himself to the emergency for further evaluation. It seems like he had bowel movements mixed with blood given in the emergency room. He is unable to quantify the amount of blood loss or tell me if there were any blood clots in the stool. He is unable to clearly explain if he has any dark melanotic stools but does note his stools are mckinley pie in color. The patient admits to having some dizziness when he tries to stand up, but no other acute symptoms. He denies any headache, changes in vision or hearing or difficulty in swallowing , he denies any chest pain or acute shortness of breath, no nausea no abdominal pain no vomiting, he usually suffers from constipation, but thought he was having some diarrhea with the bloody stools. The patient has chronic joint pains but no acute joint swelling or skin rashes. He is trying to work with his doctor for lower extremity infection right more than the left extremity. The patient denies any urinary complaints. Denies any fever or chills. He takes a baby aspirin, he is not on Coumadin, he takes Tylenol for pain and denies any use of NSAID use, denies active use of alcohol, denies any dyspeptic symptoms recently In the emergency room the patient was noted to be mildly anemic, approximately 3 g of hemoglobin from his last hemoglobin check. The patient has negative orthostatics, hemodynamically was noted to be stable. EGD (by dr Mitchell): no evidence of bleeding noted. 09/04: Still melena. Hb 8.5, down from 10 yesterday Colonoscopy: FINDINGS: RECTUM: Hemorrhoids were noted. These did not appear to be bleeding. SIGMOID COLON/DESCENDING COLON: Several diverticula were noted. No significant blood was noted and no bleeding site was found. SPLENIC FLEXURE/TRANSVERSE COLON: Normal. HEPATIC FLEXURE: Normal. ASCENDING COLON: In the distal portion of the ascending colon, there was fresher red blood and there was a large clot noted. This was washed at the proximal portion. The bleeding site seemed to be from a diverticulum. This area was injected with about 5 or 6 mL of hypertonic saline/epinephrine mixture. Two clips were placed on the diverticulum that was presumed to be the bleeding source. Proximal to this area there was very little blood. CECUM: This appeared normal. TERMINAL ILEUM: This was inspected for a very short distance. Terminal ileum tissue that was visualized appeared normal. 09/05: One Unit RBC given for HB drop to 7.4. Repeat H/H is pending Is doing well. Will discharge patient later today. Discharge diagnosis: Diverticular bleeding Secondary discharge diagnosis: Diverticulosis Hemorrhoids CAD HL HTN Reason for admission: Melena Pertinent studies/significant findings: See EGD and Colonoscopy findings. Bleeding from diverticulum right sided colon Complications: none - Time Spent with Patient Total time spent providing and/or coordinating discharge services: Less than 30 minutes Medical - DS: Exam - Constitutional Vitals: Vital Signs Temp Pulse Pulse Resp BP BP Pulse Ox 09/05/17 12:00 98.2 F 80 16 114/57 99 09/05/17 08:00 98.0 F 77 129/52 09/05/17 07:08 85 09/05/17 07:05 97.8 F 85 20 169/65 94 09/05/17 03:48 98.3 F 88 20 175/68 96 09/04/17 23:50 97.7 F 80 20 136/70 93 09/04/17 22:01 72 15 118/49 100 09/04/17 21:01 86 18 159/68 95 09/04/17 21:00 82 21 95 09/04/17 20:26 98.5 F 76 15 95 09/04/17 20:25 74 19 161/76 97 09/04/17 20:00 90 93 09/04/17 19:06 71 17 149/56 100 09/04/17 18:01 76 18 138/43 97 09/04/17 17:30 74 16 157/62 100 09/04/17 17:05 74 16 157/62 100 09/04/17 17:01 72 11 L 159/52 100 09/04/17 16:01 74 16 157/62 100 Intake and Output 09/05/17 09/05/17 09/05/17 05:59 13:59 21:59 Intake Total 660 / 660 237 / 237 325 / 325 Output Total 225 / 225 150 / 150 Balance 435 / 435 87 / 87 325 / 325 Intake: Oral 660 / 660 237 / 237 Blood Product 325 / 325 Output: Void Amount 225 / 225 150 / 150 Other: Meal Breakfast Percent of Meal Consumed 100% Feeding Ability Assist with Tray Set Up # Voids 1 Medical - DS: Data Procedures and tests throughout hospitalization: EGD 09/[address] Dmitry Mitchell: FINDINGS: ESOPHAGUS: Proximal, mid and distal esophagus appeared fairly normal. In the distal esophagus, there were an increased number of fine blood vessels which is consistent with, but not necessarily diagnostic of, reflux. Biopsies were taken from the distal esophagus to evaluate for evidence of reflux esophagitis. EG junction was at about 40 cm. There was mild erythema and edema noted. No significant hiatal hernia was seen. STOMACH: Cardia few areas of erythema were noted. Otherwise, the fundus and body appeared fairly normal. Antrum: There were some prepyloric erythema and edema. No ulcers were seen. No blood was seen. Biopsies were taken to evaluate for evidence of Helicobacter. PYLORUS: Normal. DUODENUM: This appeared normal. RECOMMENDATIONS: Colonoscopy is planned for tomorrow after bowel prep. We may consider benefits and following antireflux measures. He may benefit from acid suppression for about 2 months and then discontinue the acid suppression. COLONOSCOPY 09/04: FINDINGS: RECTUM: Hemorrhoids were noted. These did not appear to be bleeding. SIGMOID COLON/DESCENDING COLON: Several diverticula were noted. No significant blood was noted and no bleeding site was found. SPLENIC FLEXURE/TRANSVERSE COLON: Normal. HEPATIC FLEXURE: Normal. ASCENDING COLON: In the distal portion of the ascending colon, there was fresher red blood and there was a large clot noted. This was washed at the proximal portion. The bleeding site seemed to be from a diverticulum. This area was injected with about 5 or 6 mL of hypertonic saline/epinephrine mixture. Two clips were placed on the diverticulum that was presumed to be the bleeding source. Proximal to this area there was very little blood. CECUM: This appeared normal. TERMINAL ILEUM: This was inspected for a very short distance. Terminal ileum tissue that was visualized appeared normal. RECOMMENDATIONS: Diet can be allowed and increased as tolerated. Eventually, he could go to a high fiber diet. In the [facility] there is no need to avoid nuts, seeds, and popcorn just because one has diverticulosis. If he tolerates and enjoys nuts, seeds, and popcorn he may eat them with in several days to a few weeks. Labs on day of discharge: Labs from last 24 hours 09/05/17 09/05/17 04:37 04:37 WBC 6.5 RBC 2.45 L Hgb 7.4 L Hct 22.4 L MCV 91.5 MCH 30.0 MCHC 32.8 RDW 15.4 H Plt Count 188 MPV 7.9 Gran % 75.0 Lymph % (Auto) 12.2 L Hale % (Auto) 8.5 Eos % (Auto) 3.9 Baso % (Auto) 0.4 Gran # 4.9 Lymph # (Auto) 0.8 L Hale # (Auto) 0.6 Eos # (Auto) 0.3 Baso # (Auto) 0 Sodium 141 Potassium 3.9 Chloride 106 Carbon Dioxide 23 Anion Gap 12.0 BUN 25 H Creatinine 1.2 GFR Calculation 53 Glucose 90 Uric Acid 8.3 H Calcium 9.9 Phosphorus 2.2 L Magnesium 1.7 Total Bilirubin 0.4 Direct Bilirubin < 0.2 GGT 15 AST 23 ALT 12 Alkaline Phosphatase 44 Lactate Dehydrogenase 210 Total Protein 5.1 L Albumin 2.6 L Globulin 2.5 Albumin/Globulin Ratio 1.0 Triglycerides 115 Medical - DS: A/P - Patient/Caregiver Discharge Instructions Activity: resume usual activities as tolerated Diet: Cardiac, High Fiber Additional Instructions: Protonix (pantoprazole): gastric acid suppression medication for 2 months as recommended by dr Mitchell (GI), and higher fiber diet. - Follow up Plan Follow up with: Rob Robison MD [Primary Care Provider] - Disposition: Home, Self-Care Prognosis: Fair Rehab Potential: Fair Overall status at discharge: patient is back to baseline Medical - DS: Qual - VTE Deep Vein Thrombosis/Pulmonary Embolism Present on Admission: No
[2017-09-05 17:48] LABS: Basophils # (Auto) 0 K/mcL (0.0-0.3); Basophils % (Auto) 0.2 % (0.0-2.0); Eosinophils # (Auto) 0.3 K/mcL (0.0-0.7); Eosinophils % (Auto) 4.5 % (0.0-7.0); Granulocytes % (Auto) 73.3 % (38.0-78.0); Lymphocytes # (Auto) 0.9 K/mcL (1.5-4.8); Lymphocytes % (Auto) 12.8 % (15.5-49.0); Mean Corpuscular HGB Conc 34.3 g/dL (31.0-36.0); Mean Corpuscular Hemoglobin 30.5 pg (26.0-34.0); Monocytes # (Auto) 0.7 K/mcL (0.1-0.9); Monocytes % (Auto) 9.2 % (1.0-12.0); Platelet Count 206 K/mcL (140-440); RBC 2.64 M/mcL (4.50-5.90); Red Cell Distribution Width 14.9 % (11.5-14.5)
[2017-09-05] MEDS ORDERED: MAGNESIUM HYDROXIDE 30 ML ORAL.SUSP PO PRN (20:28)
[2017-09-05] MEDS ORDERED: SIMVASTATIN 20 MG TABLET PO SCH (21:00)
[2017-09-05] MEDS: DOCUSATE SODIUM 100 MG CAPSULE PO SCH (22:10)
[2017-09-06 04:59] LABS: Basophils # (Auto) 0 K/mcL (0.0-0.3); Basophils % (Auto) 0.3 % (0.0-2.0); Eosinophils # (Auto) 0.2 K/mcL (0.0-0.7); Eosinophils % (Auto) 2.7 % (0.0-7.0); Granulocytes % (Auto) 74.1 % (38.0-78.0); Lymphocytes # (Auto) 0.9 K/mcL (1.5-4.8); Lymphocytes % (Auto) 13.8 % (15.5-49.0); Mean Cell Volume 90.7 fL (80.0-100.0); Mean Corpuscular HGB Conc 32.9 g/dL (31.0-36.0); Mean Corpuscular Hemoglobin 29.9 pg (26.0-34.0); Monocytes # (Auto) 0.6 K/mcL (0.1-0.9); Monocytes % (Auto) 9.1 % (1.0-12.0); Platelet Count 188 K/mcL (140-440); RBC 2.66 M/mcL (4.50-5.90); Red Cell Distribution Width 15.2 % (11.5-14.5)
[2017-09-06 05:16] LABS: ALT/SGPT 14 U/l (0-40); Albumin 2.9 gm/dL (3.2-5.2); Albumin/Globulin Ratio 1.3 (1.0-2.3); Alkaline Phosphatase 49 U/L (39-117); Bilirubin,Direct < 0.2 mg/dL (0.0-0.3); Blood Urea Nitrogen 19 mg/dl (8-23); Gamma Glutamyl Transpeptidase 14 U/L (8-61); Uric Acid 8.2 mg/dL (2.5-8.0)
[2017-09-06] MEDS: 0.9 % SODIUM CHLORIDE 10 ML SYRINGE IV SCH (06:10)
[2017-09-06] MEDS: PANTOPRAZOLE 40 MG TABLET PO SCH (07:03)
[2017-09-06] MEDS: DOCUSATE SODIUM 100 MG CAPSULE PO SCH (08:59)
[2017-09-06] MEDS: ISOSORBIDE MONONITRATE 60 MG TAB.XL.24H PO SCH (08:59)
[2017-09-06] MEDS: cloNIDine HCL 0.1 MG TABLET PO SCH (08:59)
[2017-09-06] MEDS: TAMSULOSIN 0.4 MG CAPSULE PO SCH (08:59)
[2017-09-06] MEDS: SILVER SULFADIAZINE CREAM.TOP 25GM TOPICAL SCH (10:00)
== END 2017-09-06 12:40 | DRG 378 ==
LOC: ED 23:35 → ICU 09-03 08:52 → MEDSUR 09-04 23:45
PROVIDERS: ADMIT Internal Medicine; ATTEND Specialist

== ENCOUNTER 2017-11-14 13:55 | Inpatient (IN) ==
--- NOTE | 2017-11-14 14:19 | Emergency Department Note ---
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 Patient has had some difficulty initiating urination but does have BPH. Is any urgency frequency or dysuria as he had done earlier this morning with no difficulty. Denies chest pain there is no shortness of breath is temperature 96.5 however his blood pressure was 75/70 on admission and the heart rate of 56 saturating 95% respiration 16 and does not appear to be in acute distress having no complaints - Related Data Home Medications Medication Instructions Recorded Confirmed acetaminophen 325 mg capsule 650 mg PO Q6H PRN cap 09/25/17 11/14/17 magnesium hydroxide 400 mg/5 mL 30 ml PO ONCE PRN ml 09/25/17 11/14/17 oral suspension aspirin 81 mg tablet,delayed 81 mg PO QDAY 10/24/17 11/14/17 release Previous Rx's Medication Instructions Recorded niacin ER 500 mg tablet,extended 500 mg PO QHS #30 tab 11/20/16 release 24 hr atenolol 25 mg tablet 25 mg PO QAM #30 tab 10/24/17 bacitracin 500 unit/gram topical 1 applic TOPICAL .COMPLEX #30 g 10/24/17 ointment furosemide 20 mg tablet 20 mg PO BID #60 tab 10/24/17 isosorbide mononitrate ER 60 mg 60 mg PO QAM #30 tab 10/24/17 tablet,extended release 24 hr polyethylene glycol 3350 17 See Label Instructions PO .COMPLEX 10/24/17 gram/dose oral powder PRN #238 g potassium chloride ER 10 mEq 10 meq PO BID #60 tab 10/24/17 tablet,extended release silver sulfadiazine 1 % topical 1 applic TOPICAL BID #50 g 10/24/17 cream simvastatin 20 mg tablet 20 mg PO QPM #30 tab 10/24/17 sodium phosphates 19 gram-7 118 ml CO ONCE PRN #133 ml 10/24/17 gram/118 mL enema spironolactone 25 mg tablet 25 mg PO QDAY #30 tab 10/24/17 tamsulosin 0.4 mg capsule 0.4 mg PO QDAY #30 cap 10/24/17 diltiazem CD 120 mg 120 mg PO QDAY #30 cap 10/25/17 capsule,extended release 24 hr pantoprazole 40 mg tablet,delayed 40 mg PO HS #30 tab 10/25/17 release cholecalciferol (vitamin D3) 2,000 2,000 unit PO QDAY #30 cap 11/06/17 unit capsule ferrous sulfate 325 mg (65 mg 325 mg PO BID #60 tab 11/06/17 iron) tablet Allergies Allergy/AdvReac Type Severity Reaction Status Date / Time mirabegron [From [employer]] Allergy Intermediate Rash Verified 11/14/17 13:56 Review of Systems All systems ED: reviewed and negative except as stated. Constitutional: Denies: fever, chills Neurological: Reports: as per HPI, weakness. Denies: headache, numbness, paresthesias, confusion Past Medical History - Past Medical History Medical history: Reports: cancer (colon - partial colectomy. Basal cell CA multiple sites.), CHF, coronary artery disease, hyperlipidemia, hypertension, other (Bracycardia. BPH. Monoclonal gammopathy. Diverticulitis.). Denies: CVA Surgical history ED: Reports: angioplasty/stent, colectomy (partial), coronary bypass (CABG) - Social History smoking status: Never smoker Alcohol use: Reports: Rarely (Holiday and special occasions only.), Occasionally Drug use: Reports: none Physical Exam Limitations: no limitations General appearance: alert Head: atraumatic Eye: Present: normal appearance ENT: normal exam, normal oropharynx, mucous membranes moist Neck: Present: normal inspection, full ROM. Absent: trachea midline Chest: Present: normal inspection, symmetric chest wall rise. Absent: tenderness Respiratory: Present: normal lung sounds bilaterally. Absent: respiratory distress, wheezes, stridor Cardiovascular: Present: regular rate, normal rhythm, normal heart sounds. Absent: bradycardia, tachycardia, irregular rhythm Abdominal: Present: soft, normal bowel sounds. Absent: distention, tenderness, guarding, rebound, rigidity Extremities: Present: normal inspection, full ROM. Absent: tenderness Back: Present: normal inspection, full ROM. Absent: tenderness Neurological: Present: alert, oriented X3, CN II-XII intact. Absent: motor sensory deficit Psychiatric: Present: normal affect, normal mood. Absent: depressed, agitated Skin: Present: warm, dry Course Vital Signs Temperature 96.8 F L 11/14/17 13:56 Pulse Rate 56 L 11/14/17 13:56 Respiratory Rate 16 11/14/17 13:56 Blood Pressure 75/49 11/14/17 13:56 Pulse Oximetry (%) 95 11/14/17 13:56 Temperature 98.9 F 11/15/17 07:17 Pulse Rate 70 11/15/17 07:10 Respiratory Rate 16 11/15/17 07:17 Blood Pressure 146/71 11/15/17 07:17 Pulse Oximetry (%) 93 11/15/17 07:17 Weakness - Lab Data Result diagrams: 11/15/17 04:06 11/15/17 04:06 Lab Results 11/14/17 11/14/17 11/14/17 Range/Units 14:03 14:03 14:03 WBC Cancelled RBC Cancelled Hgb Cancelled Hct Cancelled MCV Cancelled MCH Cancelled MCHC Cancelled RDW Cancelled Plt Count Cancelled MPV Cancelled Gran % Cancelled Lymph % (Auto) Cancelled Bureau % (Auto) Cancelled Eos % (Auto) Cancelled Baso % (Auto) Cancelled Gran # Cancelled Lymph # (Auto) Cancelled Bureau # (Auto) Cancelled Eos # (Auto) Cancelled Baso # (Auto) Cancelled Total Counted Seg Neutrophils % (38-78) % Band Neutrophils % (0-10) % Lymphocytes % (15-49) % Monocytes % (Manual) (1-12) % Differential Comment Cancelled Reactive Lymphocytes (0-2) % Platelet Estimate (NORMAL) RBC Morphology (NORMAL) VBG Lactic Acid (0.5-2.2) mmol/L Sodium 135 (133-145) mmol/L Potassium 5.0 (3.3-5.1) mmol/L Chloride 96 (96-108) mmol/L Carbon Dioxide 28 (22-30) mmol/L Anion Gap 11.0 (8-16) BUN 33 H (8-23) mg/dl Creatinine 2.3 H (0.7-1.2) mg/dl GFR Calculation 24 Glucose 179 H (70-105) mg/dL Calcium 10.5 H (8.6-10.4) mg/dl Total Bilirubin 0.4 (0.0-1.0) mg/dL AST 24 (0-37) U/l ALT 19 (0-40) U/l Alkaline Phosphatase 96 (39-117) U/L Troponin T 0.04 H* (0-0.03) ng/ml NT-Pro-B Natriuret Pep 341.9 (0-450) pg/ml Total Protein 6.8 (5.9-8.4) gm/dL Albumin 3.2 (3.2-5.2) gm/dL Globulin 3.6 (2.2-3.7) gm/dL Albumin/Globulin Ratio 0.9 L (1.0-2.3) Urine Color Urine Appearance Urine pH (5.0-9.0) Ur Specific [place] (1.000-1.035) Urine Protein (NEG) mg/dL Urine Glucose (UA) (NEG) mg/dL Urine Ketones (NEG) mg/dL Urine Occult Blood (<0.03) mg/dL Urine Nitrate (NEG) Urine Bilirubin (NEG) mg/dL Urine Ictotest (NEG) Urine Urobilinogen (NEG) mg/dL Ur Leukocyte Esterase (NEG) /uL Urine RBC (0-1) /hpf Urine WBC (0-4) /hpf Ur Squamous Epith Cells (0-4) /hpf Urine Bacteria (0) /hpf Hyaline Casts (0-2) /lpf Urine Mucus (0) /hpf Ur Culture Indicated? 11/14/17 11/14/17 11/14/17 Range/Units 14:03 14:03 14:45 WBC 7.6 RBC 3.85 L Hgb 10.9 L Hct 33.9 L MCV 88.2 MCH 28.5 MCHC 32.3 RDW 17.3 H Plt Count 207 MPV 9.3 Gran % Lymph % (Auto) Bureau % (Auto) Eos % (Auto) Baso % (Auto) Gran # Lymph # (Auto) Bureau # (Auto) Eos # (Auto) Baso # (Auto) Total Counted 100 Seg Neutrophils % 75 (38-78) % Band Neutrophils % 7 (0-10) % Lymphocytes % 8 L (15-49) % Monocytes % (Manual) 9 (1-12) % Differential Comment Reactive Lymphocytes 1 (0-2) % Platelet Estimate Normal (NORMAL) RBC Morphology Normal (NORMAL) VBG Lactic Acid 1.9 (0.5-2.2) mmol/L Sodium (133-145) mmol/L Potassium (3.3-5.1) mmol/L Chloride (96-108) mmol/L Carbon Dioxide (22-30) mmol/L Anion Gap (8-16) BUN (8-23) mg/dl Creatinine (0.7-1.2) mg/dl GFR Calculation Glucose (70-105) mg/dL Calcium (8.6-10.4) mg/dl Total Bilirubin (0.0-1.0) mg/dL AST (0-37) U/l ALT (0-40) U/l Alkaline Phosphatase (39-117) U/L Troponin T (0-0.03) ng/ml NT-Pro-B Natriuret Pep (0-450) pg/ml Total Protein (5.9-8.4) gm/dL Albumin (3.2-5.2) gm/dL Globulin (2.2-3.7) gm/dL Albumin/Globulin Ratio (1.0-2.3) Urine Color Yellow Urine Appearance Cloudy Urine pH 5.0 (5.0-9.0) Ur Specific [place] 1.020 (1.000-1.035) Urine Protein 100 A (NEG) mg/dL Urine Glucose (UA) Negative (NEG) mg/dL Urine Ketones 5/tr A (NEG) mg/dL Urine Occult Blood 0.03 A (<0.03) mg/dL Urine Nitrate Neg (NEG) Urine Bilirubin Neg (NEG) mg/dL Urine Ictotest Neg (NEG) Urine Urobilinogen 2.0 A (NEG) mg/dL Ur Leukocyte Esterase 25 A (NEG) /uL Urine RBC 8 H (0-1) /hpf Urine WBC 15 H (0-4) /hpf Ur Squamous Epith Cells 3 (0-4) /hpf Urine Bacteria 0 (0) /hpf Hyaline Casts 25 H (0-2) /lpf Urine Mucus Many A (0) /hpf Ur Culture Indicated? Yes Disposition Pt seen by HEATING ELEMENT REPAIRER/PA only: No Clinical Impression: Pneumonia Disposition: Xfer As Inpt ([facility]) Condition: Fair
[2017-11-14] MEDS ORDERED: LACTATED RINGERS 1,000 ML IV ONE (14:26)
--- NOTE | 2017-11-14 14:27 | XRay Report ---
CLINICAL INFORMATION: Shortness of breath COMPARISON: 10/29/2016 FINDINGS: Mild cardiomegaly is unchanged. Sternotomy changes noted. Mediastinum is unremarkable. Pulmonary vessels are normal. There is patchy density in both mid and lower thoracic regions likely reflecting known scattered pleural plaque also seen on 09/25/[address] Suspect vague patchy superimposed infiltrates in both lower lobes with mild progression. IMPRESSION: Patchy increased density in both mid and lower thoracic regions which likely reflects known scattered bilateral pleural plaque. Suspect superimposed infiltrate in the lower lobes.. Consider: CT Interpreted and Authenticated by: Demetrio Quintero 11/14/17
[2017-11-14 14:34] LABS: Mean Cell Volume 88.2 fL (80.0-100.0); Mean Corpuscular HGB Conc 32.3 g/dL (31.0-36.0); Mean Corpuscular Hemoglobin 28.5 pg (26.0-34.0); Platelet Count 207 K/mcL (140-440); RBC 3.85 M/mcL (4.50-5.90); Red Cell Distribution Width 17.3 % (11.5-14.5)
[2017-11-14] MEDS ORDERED: AZITHROMYCIN 500 MG in DEXTROSE 5% IN WATER 250 ML IV ONE (14:37)
[2017-11-14] MEDS ORDERED: cefTRIAXone 1 GM VIAL IV ONE (14:37)
[2017-11-14 15:00] LABS: ALT/SGPT 19 U/l (0-40); Albumin 3.2 gm/dL (3.2-5.2); Albumin/Globulin Ratio 0.9 (1.0-2.3); Alkaline Phosphatase 96 U/L (39-117); Blood Urea Nitrogen 33 mg/dl (8-23); proBNP 341.9 pg/ml (0-450)
[2017-11-14 15:03] LABS: Band Neutrophils % 7 % (0-10); Lymphocytes % 8 % (15-49); Monocytes % (Manual) 9 % (1-12); Platelet Estimate NORMAL (NORMAL); RBC Morphology NORMAL (NORMAL); Segmented Neutrophils % 75 % (38-78)
[2017-11-14 15:40] LABS: Appearance,Urine CLOUDY; Bacteria,Urine 0 /hpf (0); Bilirubin,Urine NEG (NEG); Color,Urine YELLOW; Glucose,Urine (UA) NEGATIVE (NEG); Ictotest,Urine NEG (NEG); Leukocyte Esterase,Urine 25 /uL (NEG); Mucus,Urine MANY /hpf (0); Protein,Urine 100 mg/dL (NEG); Urine Blood 0.03 mg/dL (<0.03); Urine Hyaline Cast 25 /lpf (0-2); Urine RBC 8 /hpf (0-1); Urine Squamous Epithelial Cell 3 /hpf (0-4); Urine WBC 15 /hpf (0-4)
[2017-11-14] MEDS ORDERED: PIPERACILLIN SODIUM/TAZOBACTAM 3.375 GM in DEXTROSE 5% IN WATER 50 ML IV ONE (15:43)
[2017-11-14] MEDS ORDERED: LACTATED RINGERS 1,000 ML IV SCH (15:45)
[2017-11-14] MEDS ORDERED: 0.9 % SODIUM CHLORIDE 1,000 ML IV ONE (15:47)
[2017-11-14] MEDS ORDERED: ONDANSETRON 4 MG/2 ML VIAL IV PRN (18:21)
[2017-11-14] MEDS ORDERED: POTASSIUM CHLORIDE 20 MEQ PACKET PO PRN (18:21)
[2017-11-14] MEDS ORDERED: ACETAMINOPHEN 325 MG TABLET PO PRN (18:21)
[2017-11-14] MEDS ORDERED: NOREPINEPHRINE BITARTRATE 16 MG in 0.9 % SODIUM CHLORIDE 234 ML IV SCH (18:21)
[2017-11-14] MEDS ORDERED: MAGNESIUM SULFATE 2 GM/50 ML BAG IV PRN (18:21)
[2017-11-14] MEDS: 0.9 % SODIUM CHLORIDE 1,000 ML IV SCH (18:30)
[2017-11-14] MEDS ORDERED: IPRATROPIUM/ALBUTEROL 3 ML AMPUL.NEB NEB ONE (18:42)
[2017-11-14] MEDS: IPRATROPIUM/ALBUTEROL 3 ML AMPUL.NEB NEB SCH ×2 (18:54→23:10)
--- NOTE | 2017-11-14 19:28 | Internal Med History&Physical ---
Medical - H&P: [facility] Patient information: Note initiated : 11/14/17 at 7:23 pm Service Date, if different from initiated Date: [] Patient: Laz Junior 87 y/o M admitted on 11/14/17 for Weak. Chief Complaint: [] Chief complaint: Weakness History of present illness: Mr. Junior is a 87 year old M resident of [facility] assisted [facility] and carries a history of CAD/chronic kidney disease stage III comes in with his and daughter with symptoms of progressive weakness confusion. Patient has been feeling unwell over the last 6-7 days. He went to [place] today for scalp basal cell cancer removal at dermatology clinic. However family got concerned due to progressive weakness and confusion. He was subsequently brought into the ER. Initial workup was significant for bilateral chest infiltrates on imaging. UA reveals pyuria.EKG is unremarkable. in light of pneumonia and acute mental status change hospitalist service was consulted. At the time of evaluation patient is fairly anxious. He was able to answer some of the questions. Most of the history was obtained from review of medical records, ER physician and . his scalp has been losing significant amount of blood soaking bandage and pillow. He denies chest pain, fever, shaking chills. He does endorse to increasing frequency and slow stream due to underlying prostate hypertrophy. He denies diarrhea or weight loss glandular swelling. He is normally quite functional. 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) CKD (chronic kidney disease) stage 3, GFR 30-59 ml/min (Chronic) UTI (urinary tract infection) (Resolved) CHF (congestive heart failure) (Chronic) Bradycardia (Chronic) Urinary hesitancy due to benign prostatic hyperplasia (Chronic) Monoclonal gammopathy (Chronic) Hypertension, essential (Chronic) Hyperlipidemia (Chronic) Diverticulitis of colon (Chronic) Malignant neoplasm of rectosigmoid (colon) (Resolved) 2003 - Dr White partial resection CAD (coronary artery disease) (Chronic) Basal cell carcinoma (Chronic) Multiple sites Surgical history: History of colonoscopy with polypectomy (Resolved) inflammatory polyp Status post biopsy of skin (Resolved) Skin cancer unspecified of what type, located on scalp, face and hands Status post Mohs surgery (Resolved 10/12/14) Dr. Rangel: Left Cheek, Left Preauricular History of coronary artery bypass graft (Resolved) 05/1998 2-vessel History of colectomy (Resolved) 2003, Partial History of cardiac catheterization (Resolved 03/16/98) Right History of angioplasty (Resolved) 1997 Pertinent family history: Brother (younger) Family history of malignant neoplasm in brother Brain tumor younger brother resulted in Brother (older) Family history of cardiovascular disease (Older brother) resulted in Brother Family history of malignant neoplasm of prostate resulted in Sister Family history of malignant lymphatic neoplasm Hematopoietic. Lymphoma. Social history: nonsmoker occasional alcohol Lives at [facility] - H&P: Meds Home Medications Medication Instructions Recorded Confirmed Type niacin ER 500 mg tablet,extended 500 mg PO QHS #30 tab 11/20/16 11/14/17 Rx release 24 hr acetaminophen 325 mg capsule 650 mg PO Q6H PRN cap 09/25/17 11/14/17 History magnesium hydroxide 400 mg/5 mL 30 ml PO ONCE PRN ml 09/25/17 11/14/17 History oral suspension aspirin 81 mg tablet,delayed 81 mg PO QDAY 10/24/17 11/14/17 History release atenolol 25 mg tablet 25 mg PO QAM #30 tab 10/24/17 11/14/17 Rx bacitracin 500 unit/gram topical 1 applic TOPICAL .COMPLEX #30 g 10/24/17 Rx ointment furosemide 20 mg tablet 20 mg PO BID #60 tab 10/24/17 11/14/17 Rx isosorbide mononitrate ER 60 mg 60 mg PO QAM #30 tab 10/24/17 11/14/17 Rx tablet,extended release 24 hr polyethylene glycol 3350 17 See Label Instructions PO .COMPLEX 10/24/17 Rx gram/dose oral powder PRN #238 g potassium chloride ER 10 mEq 10 meq PO BID #60 tab 10/24/17 11/14/17 Rx tablet,extended release silver sulfadiazine 1 % topical 1 applic TOPICAL BID #50 g 10/24/17 11/14/17 Rx cream simvastatin 20 mg tablet 20 mg PO QPM #30 tab 10/24/17 11/14/17 Rx sodium phosphates 19 gram-7 118 ml TN ONCE PRN #133 ml 10/24/17 11/14/17 Rx gram/118 mL enema spironolactone 25 mg tablet 25 mg PO QDAY #30 tab 10/24/17 11/14/17 Rx tamsulosin 0.4 mg capsule 0.4 mg PO QDAY #30 cap 10/24/17 11/14/17 Rx diltiazem CD 120 mg 120 mg PO QDAY #30 cap 10/25/17 11/14/17 Rx capsule,extended release 24 hr pantoprazole 40 mg tablet,delayed 40 mg PO HS #30 tab 10/25/17 11/14/17 Rx release cholecalciferol (vitamin D3) 2,000 2,000 unit PO QDAY #30 cap 11/06/17 11/14/17 Rx unit capsule ferrous sulfate 325 mg (65 mg 325 mg PO BID #60 tab 11/06/17 11/14/17 Rx iron) tablet Allergies Allergy/AdvReac Type Severity Reaction Status Date / Time mirabegron [From [employer]] Allergy Intermediate Rash Verified 11/14/17 13:56 Medical - H&P: Exam - Constitutional Vitals: Temp Pulse Resp BP Pulse Ox 98.2 F 56 L 16 128/81 96 11/14/17 18:21 11/14/17 18:55 11/14/17 18:55 11/14/17 18:21 11/14/17 18:21 Exam: anxious eye movements symmetric oral cavity dry Head bleeding from tumor excision site no ear discharge Neck no lymphadenopathy S1 and [id number], ESM grade 2 Diminished breath sounds bases with a respiratory crackles abdomen soft Lower extremityStasis changes, seborrheic keratosis Skin actinic and seborrheic keratosis Psych anxious Neuro moving all 4 extremities higher functions cannot be performed Medical - H&P: Reslt - Labs CBC & Chem 7: 11/14/17 14:03 11/14/17 14:03 Labs: Short CBC 11/14/17 11/14/17 Range/Units 14:03 14:03 WBC Cancelled 7.6 Hgb Cancelled 10.9 L Hct Cancelled 33.9 L Plt Count Cancelled 207 BMP 11/14/17 14:03 Sodium 135 Potassium 5.0 Chloride 96 Carbon Dioxide 28 BUN 33 H Creatinine 2.3 H Glucose 179 H Calcium 10.5 H Cardiac Enzymes 11/14/17 Range/Units 14:03 Troponin T 0.04 H* (0-0.03) ng/ml Liver Function 11/14/17 Range/Units 14:03 Total Bilirubin 0.4 (0.0-1.0) mg/dL AST 24 (0-37) U/l ALT 19 (0-40) U/l Alkaline Phosphatase 96 (39-117) U/L Albumin 3.2 (3.2-5.2) gm/dL Urine 11/14/17 Range/Units 14:45 Urine Color Yellow Urine Appearance Cloudy Urine pH 5.0 (5.0-9.0) Ur Specific [place] 1.020 (1.000-1.035) Urine Protein 100 A (NEG) mg/dL Urine Glucose (UA) Negative (NEG) mg/dL Medical - H&P: A/P (1) Aspiration pneumonia Current visit: Yes Status: Acute * Aspiration pneumonia-continue aspiration precaution/speech therapy eval for dietary recommendations. Continue antibiotic coverage for empiric anaerobic/ gram-negative. Admit as inpatient in light of curb 65 score 4 * complicated UTI-secondary to inadequate bladder emptying. On antibiotic coverage. Await cultures * hypotension-secondary to pneumonia. Improving with crystalloids * scalp bleeding-surgery consult for cauterization * history of chronic kidney disease * history of CAD-continue isosorbide/spironolactone * history of BPH-continue Flomax * iron deficiency anemia-continue ferrous sulfate * hyperlipoidemia on statin * GERD on PPI * Hypertension-restart atenolol/diltiazem once systolics over 140 * DNR * Prophylaxis heparin Plan * broad antibiotic coverage * speech therapy eval * Physical therapy * surgery consult for cauterization * pre-existing medical condition management as above Time 70 mins
--- NOTE | 2017-11-14 20:56 | General Surgery Consult Note ---
History of Present Illness Patient information: Note initiated : 11/14/17 at 8:54 pm Service Date, if different from initiated Date: [] Patient: Laz Junior 87 y/o M admitted on 11/14/17 for Weak. Chief Complaint: [] Reason for consult: other (bleeding biopsy site of scalp) History of present illness: 87-year-old male who was admitted to the ICU with multiple medical comorbidities. He was noted to have a fresh operative site of the frontal parietal area of the scalp. 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 Since admission to the ICU he is saturated multiple dressings and he has a pulsatile lesion in 2 areas in the operative site. After discussion with the patient arrangements were made to control the bleeding which appears to be coming from the galea which is totally exposed. The old dressing was removed and dry gauze was applied with slight tension over the gauze while I obtain the necessary materials to control the bleeding. Once the instrumentation and dressings were obtained the area was painted with ChloraPrep. Using a 25-gauge needle 0.5% Marcaine with epinephrine was infiltrated beneath the galea and 2 areas of the bleeding ceased. The third area in the center of the wound was gently sutured with a [id number] of 4- 0 Vicryl and the area ceased bleeding. The entire site was then covered with a large Surgicel gauze and compression was held for about 10 minutes. When the gauze was removed all of the oozing and bleeding had ceased. The gauze was replaced and the patient was reevaluated and another 10 minutes and there was no further bleeding. Another fresh sheet of gauze was placed over the denuded site and this was covered with folded 4 x 4 gauze. The area surrounding the wound was painted with benzoin spray and a 4 x 5 Tegaderm dressing was placed over the entire area. The edges of the Tegaderm were taped with silk adhesive tape which held the Tegaderm tightly in place. Monitoring over the next 5 minutes did not reveal any bleeding. The patient tolerated the procedure well. No other evaluation was done during this visit. Medications and Allergies Home Medications Medication Instructions Recorded Confirmed Type niacin ER 500 mg tablet,extended 500 mg PO QHS #30 tab 11/20/16 11/20/17 Rx release 24 hr acetaminophen 325 mg capsule 650 mg PO Q6H PRN cap 09/25/17 11/20/17 History magnesium hydroxide 400 mg/5 mL 30 ml PO ONCE PRN ml 09/25/17 11/20/17 History oral suspension aspirin 81 mg tablet,delayed 81 mg PO QDAY 10/24/17 11/20/17 History release atenolol 25 mg tablet 25 mg PO QAM #30 tab 10/24/17 11/20/17 Rx bacitracin 500 unit/gram topical 1 applic TOPICAL .COMPLEX #30 g 10/24/17 Rx ointment furosemide 20 mg tablet 20 mg PO BID #60 tab 10/24/17 11/20/17 Rx isosorbide mononitrate ER 60 mg 60 mg PO QAM #30 tab 10/24/17 11/20/17 Rx tablet,extended release 24 hr polyethylene glycol 3350 17 See Label Instructions PO .COMPLEX 10/24/17 Rx gram/dose oral powder PRN #238 g potassium chloride ER 10 mEq 10 meq PO BID #60 tab 10/24/17 11/20/17 Rx tablet,extended release silver sulfadiazine 1 % topical 1 applic TOPICAL BID #50 g 10/24/17 11/20/17 Rx cream simvastatin 20 mg tablet 20 mg PO QPM #30 tab 10/24/17 11/20/17 Rx sodium phosphates 19 gram-7 118 ml MS ONCE PRN #133 ml 10/24/17 11/20/17 Rx gram/118 mL enema spironolactone 25 mg tablet 25 mg PO QDAY #30 tab 10/24/17 11/20/17 Rx tamsulosin 0.4 mg capsule 0.4 mg PO QDAY #30 cap 10/24/17 11/20/17 Rx diltiazem CD 120 mg 120 mg PO QDAY #30 cap 10/25/17 11/20/17 Rx capsule,extended release 24 hr pantoprazole 40 mg tablet,delayed 40 mg PO HS #30 tab 10/25/17 11/20/17 Rx release cholecalciferol (vitamin D3) 2,000 2,000 unit PO QDAY #30 cap 11/06/17 11/20/17 Rx unit capsule ferrous sulfate 325 mg (65 mg 325 mg PO BID #60 tab 11/06/17 11/20/17 Rx iron) tablet Amoxicillin/Potassium Clav 875 mg PO Q12H #10 tab 11/16/17 11/20/17 Rx [Augmentin] Allergies Allergy/AdvReac Type Severity Reaction Status Date / Time mirabegron [From Myrbetriq] Allergy Intermediate Rash Verified 11/20/17 08:05 Exam Temp Pulse Resp BP Pulse Ox 98.2 F 56 L 16 128/81 96 11/14/17 18:21 11/14/17 18:55 11/14/17 18:55 11/14/17 18:21 11/14/17 18:21 Results - Labs 11/16/17 04:05 11/16/17 04:05 Abnormal lab results 11/14/17 11/14/17 11/14/17 Range/Units 14:03 14:03 14:03 RBC 3.85 L (4.50-5.90) M/mcL Hgb 10.9 L (13.5-16.5) g/dL Hct 33.9 L (41.0-55.0) % RDW 17.3 H (11.5-14.5) % Lymphocytes % 8 L (15-49) % BUN 33 H (8-23) mg/dl Creatinine 2.3 H (0.7-1.2) mg/dl Glucose 179 H (70-105) mg/dL Calcium 10.5 H (8.6-10.4) mg/dl Troponin T 0.04 H* (0-0.03) ng/ml Albumin/Globulin Ratio 0.9 L (1.0-2.3) Urine Protein (NEG) mg/dL Urine Ketones (NEG) mg/dL Urine Occult Blood (<0.03) mg/dL Urine Urobilinogen (NEG) mg/dL Ur Leukocyte Esterase (NEG) /uL Urine RBC (0-1) /hpf Urine WBC (0-4) /hpf Hyaline Casts (0-2) /lpf Urine Mucus (0) /hpf 11/14/17 Range/Units 14:45 RBC (4.50-5.90) M/mcL Hgb (13.5-16.5) g/dL Hct (41.0-55.0) % RDW (11.5-14.5) % Lymphocytes % (15-49) % BUN (8-23) mg/dl Creatinine (0.7-1.2) mg/dl Glucose (70-105) mg/dL Calcium (8.6-10.4) mg/dl Troponin T (0-0.03) ng/ml Albumin/Globulin Ratio (1.0-2.3) Urine Protein 100 A (NEG) mg/dL Urine Ketones 5/tr A (NEG) mg/dL Urine Occult Blood 0.03 A (<0.03) mg/dL Urine Urobilinogen 2.0 A (NEG) mg/dL Ur Leukocyte Esterase 25 A (NEG) /uL Urine RBC 8 H (0-1) /hpf Urine WBC 15 H (0-4) /hpf Hyaline Casts 25 H (0-2) /lpf Urine Mucus Many A (0) /hpf Diabetes panel 11/14/17 Range/Units 14:03 Sodium 135 (133-145) mmol/L Potassium 5.0 (3.3-5.1) mmol/L Chloride 96 (96-108) mmol/L Carbon Dioxide 28 (22-30) mmol/L BUN 33 H (8-23) mg/dl Creatinine 2.3 H (0.7-1.2) mg/dl Glucose 179 H (70-105) mg/dL Calcium 10.5 H (8.6-10.4) mg/dl AST 24 (0-37) U/l ALT 19 (0-40) U/l Alkaline Phosphatase 96 (39-117) U/L Total Protein 6.8 (5.9-8.4) gm/dL Albumin 3.2 (3.2-5.2) gm/dL Calcium panel 11/14/17 Range/Units 14:03 Calcium 10.5 H (8.6-10.4) mg/dl Albumin 3.2 (3.2-5.2) gm/dL Pituitary panel 11/14/17 Range/Units 14:03 Sodium 135 (133-145) mmol/L Potassium 5.0 (3.3-5.1) mmol/L Chloride 96 (96-108) mmol/L Carbon Dioxide 28 (22-30) mmol/L BUN 33 H (8-23) mg/dl Creatinine 2.3 H (0.7-1.2) mg/dl Glucose 179 H (70-105) mg/dL Calcium 10.5 H (8.6-10.4) mg/dl Adrenal panel 11/14/17 Range/Units 14:03 Sodium 135 (133-145) mmol/L Potassium 5.0 (3.3-5.1) mmol/L Chloride 96 (96-108) mmol/L Carbon Dioxide 28 (22-30) mmol/L BUN 33 H (8-23) mg/dl Creatinine 2.3 H (0.7-1.2) mg/dl Glucose 179 H (70-105) mg/dL Calcium 10.5 H (8.6-10.4) mg/dl Total Bilirubin 0.4 (0.0-1.0) mg/dL AST 24 (0-37) U/l ALT 19 (0-40) U/l Alkaline Phosphatase 96 (39-117) U/L Total Protein 6.8 (5.9-8.4) gm/dL Albumin 3.2 (3.2-5.2) gm/dL All other labs normal. Assessment and Plan (1) Postoperative bleeding from incision bleeding controlled with 3-0 vicryl and surgiceal pressure dressing applied Status: Acute
[2017-11-14] MEDS ORDERED: SENNOSIDES/DOCUSATE SODIUM 1 TAB TABLET PO SCH (21:00)
[2017-11-14] MEDS: DOCUSATE SODIUM 100 MG CAPSULE PO SCH (22:05)
[2017-11-14] MEDS: HEPARIN 5,000 UNIT/ML VIAL SQ SCH (22:05)
[2017-11-14] MEDS: 0.9 % SODIUM CHLORIDE 10 ML SYRINGE IV SCH (22:13)
[2017-11-15] MEDS: PIPERACILLIN SODIUM/TAZOBACTAM 2.25 GM in DEXTROSE 5% IN WATER 50 ML IV SCH ×4 (00:03→17:35)
[2017-11-15] MEDS: IPRATROPIUM/ALBUTEROL 3 ML AMPUL.NEB NEB SCH ×6 (02:46→23:10)
[2017-11-15] MEDS: 0.9 % SODIUM CHLORIDE 10 ML SYRINGE IV SCH ×3 (05:45→22:12)
[2017-11-15 06:20] LABS: Mean Cell Volume 88.6 fL (80.0-100.0); Mean Corpuscular HGB Conc 32.2 g/dL (31.0-36.0); Mean Corpuscular Hemoglobin 28.5 pg (26.0-34.0); Platelet Count 165 K/mcL (140-440); RBC 3.85 M/mcL (4.50-5.90); Red Cell Distribution Width 16.8 % (11.5-14.5)
[2017-11-15 07:04] LABS: ALT/SGPT 16 U/l (0-40); Albumin 2.9 gm/dL (3.2-5.2); Albumin/Globulin Ratio 0.9 (1.0-2.3); Alkaline Phosphatase 80 U/L (39-117); Bilirubin,Direct < 0.2 mg/dL (0.0-0.3); Blood Urea Nitrogen 29 mg/dl (8-23); Gamma Glutamyl Transpeptidase 22 U/L (8-61); Uric Acid 8.5 mg/dL (2.5-8.0)
--- NOTE | 2017-11-15 08:27 | Internal Med Progress Note ---
Medical - PN: Subj Patient information: Note initiated : 11/15/17 at 8:24 am Service Date, if different from initiated Date: [] Patient: Laz Junior 87 y/o M admitted on 11/14/17 for Weak. Chief Complaint: [] Interval history: Mr. Junior is a 87 year old M resident of [facility] and carries a history of CAD/chronic kidney disease stage III comes in with his and daughter with symptoms of progressive weakness confusion. Patient has been feeling unwell over the last 6-7 days. 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 However family got concerned due to progressive weakness and confusion. He was subsequently brought into the ER. Initial workup was significant for bilateral chest infiltrates on imaging. UA reveals pyuria.EKG is unremarkable. in light of pneumonia and acute mental status change hospitalist service was consulted. At the time of evaluation patient is fairly anxious. He was able to answer some of the questions. Most of the history was obtained from review of medical records, ER physician and . his scalp has been losing significant amount of blood soaking bandage and pillow. He denies chest pain, fever, shaking chills. He does endorse to increasing frequency and slow stream due to underlying prostate hypertrophy. He denies diarrhea or weight loss glandular swelling. He is normally quite functional. 11/15- patient doing well. No overnight events, no telemetry events. Feels better this morning. Improved shortness of breath. Less anxious and confused. On antibiotic coverage along with dysphagia diet. P is therapy eval. Creatinine down to 2. scalp bleeder sutured by surgery.cultures negative to date. Transfer to medical floor. Continue antibiotic coverage. CT chest today - Constitutional Vitals: Vital Signs Temp Pulse Resp BP Pulse Ox 98.9 F 70 16 146/71 93 11/15/17 07:17 11/15/17 07:10 11/15/17 07:17 11/15/17 07:17 11/15/17 07:17 Period Temp Pulse Resp BP Sys/Gutierrez Pulse Ox Last 24 Hr 96.8 F-98.9 F 50-96 12-27 75-163/37-81 83-100 Intake and Output 11/14/17 11/15/17 11/15/17 21:59 05:59 13:59 Intake Total 1430 / 1430 50 / 50 Output Total 455 / 455 440 / 440 Balance 975 / 975 -390 / -390 Weight 190 lb 14.4 oz Intake & Output: Intake & Output 11/14/17 11/15/17 11/15/17 21:59 05:59 13:59 Intake Total 1430 / 1430 50 / 50 Output Total 455 / 455 440 / 440 Balance 975 / 975 -390 / -390 Weight 190 lb 14.4 oz Intake: IV 1400 / 1400 50 / 50 Sodium Chloride 0.9% 1,000 ml @ 250 / 250 250 mls/hr IV ONCE ONE Rx#: [id number] Zithromax 500 mg In Dextrose 5% 67 / 67 in Water 250 ml @ 250 mls/hr IV ONCE ONE Rx#:[id number] Lactated Ringers 1,000 ml @ 250 1033 / 1033 mls/hr IV .Q4H [facility] Rx#: [id number] Zosyn 2.25 gm In Dextrose 5% in 50 / 50 Water 50 ml @ 100 mls/hr IV Q6H [facility] Rx#:[id number] Zosyn 3.375 gm In Dextrose 5% 50 / 50 in Water 50 ml @ 100 mls/hr IV ONCE ONE Rx#:[id number] Oral 30 / 30 Output: Void Amount 455 / 455 440 / 440 Other: Meal Sherbert x2, Half tuna sandwhich Jello x 2, applesause Feeding Ability Independent Independent # Voids 2 1 General appearance: no acute distress Exam: Improved confusion No anxiety telemetry events Abdomen soft No pallor Nonlabored breathing Medical - PN: Obj Da - Labs CBC & Chem 7: 11/15/17 04:06 11/15/17 04:06 Labs: Abnormal Lab Results 11/15/17 11/15/17 11/14/17 04:06 04:06 14:45 RBC 3.85 L Hgb 11.0 L Hct 34.1 L RDW 16.8 H Lymphocytes % BUN 29 H Creatinine 2.0 H Glucose 124 H Uric Acid 8.5 H Calcium Troponin T Albumin 2.9 L Albumin/Globulin Ratio 0.9 L Urine Protein 100 A Urine Ketones 5/tr A Urine Occult Blood 0.03 A Urine Urobilinogen 2.0 A Ur Leukocyte Esterase 25 A Urine RBC 8 H Urine WBC 15 H Hyaline Casts 25 H Urine Mucus Many A 11/14/17 11/14/17 11/14/17 14:03 14:03 14:03 RBC 3.85 L Hgb 10.9 L Hct 33.9 L RDW 17.3 H Lymphocytes % 8 L BUN 33 H Creatinine 2.3 H Glucose 179 H Uric Acid Calcium 10.5 H Troponin T 0.04 H* Albumin Albumin/Globulin Ratio 0.9 L Urine Protein Urine Ketones Urine Occult Blood Urine Urobilinogen Ur Leukocyte Esterase Urine RBC Urine WBC Hyaline Casts Urine Mucus Meds: Medications Acetaminophen (Tylenol) 650 mg PO Q4-6HP PRN PRN Reason: PAIN/FEVER > 101 Albuterol/Ipratropium (Duoneb) 3 ml NEB Q4HRT [facility] Last Admin: 11/15/17 07:10 Dose: 3 ml Docusate Sodium (Colace) 100 mg PO BID [facility] Last Admin: 11/14/17 22:05 Dose: 100 mg Heparin Sodium (Porcine) (Heparin) 5,000 unit SQ Q12 [facility] Last Admin: 11/14/17 22:05 Dose: 5,000 unit Magnesium Sulfate (Magnesium Sulfate) 2 gm in 50 mls @ 50 mls/hr IV UD PRN PRN Reason: MG = or < 1.7 Norepinephrine Bitartrate 16 (mg/ Sodium Chloride) 250 mls @ 9.37 mls/hr IV Q24H [facility]; 10 MCG/MIN PRN Reason: Protocol Last Admin: 11/14/17 19:08 Dose: Not Given Sodium Chloride (Sodium Chloride 0.9%) 1,000 mls @ 50 mls/hr IV .Q20H [facility] Stop: 11/17/17 06:20 Last Admin: 11/14/17 18:30 Dose: 50 mls/hr Piperacillin Sod/Tazobactam (Sod 2.25 gm/ Dextrose) 50 mls @ 100 mls/hr IV Q6H [facility] Last Admin: 11/15/17 05:38 Dose: 100 mls/hr Iron Carb/Multivit/Index/Folic Acid (Multivitamin W/Minerals) 1 tab PO DAILY [facility] Ondansetron HCl (Zofran) 4 mg IV Q4-6HP PRN PRN Reason: Nausea And Vomiting Potassium Chloride (Klor-Con) 40 meq PO DAILYP PRN PRN Reason: K+ < 3.5 Senna/Docusate Sodium (Senna Plus Tablet) 1 tab PO HS [facility] Last Admin: 11/14/17 22:05 Dose: 1 tab Sodium Chloride (Saline Flush) 10 ml IV Q8 [facility] Last Admin: 11/15/17 05:45 Dose: Not Given Medical - PN: A/P - Time Spent With Patient Total time spent is greater than 50% in coordination of care (as documented) at patient's floor/unit and/or counseling patient: 25 - 35 minutes (1) Aspiration pneumonia Status: Acute Assessment and plan: * bilateral Aspiration pneumonia- clinical improvement noted on antibiotic coverage along with aspiration precaution. await speech therapy eval for dietary recommendations. * complicated UTI-secondary to inadequate bladder emptying. continue antibiotic coverage. Await cultures * hypotension-secondary to pneumonia. improved with crystalloids * scalp bleeding-resolved post surgical suturing * history of chronic kidney disease-at baseline creatinine 2 * history of CAD-continue isosorbide/spironolactone * history of BPH-continue Flomax * iron deficiency anemia-continue ferrous sulfate * hyperlipoidemia on statin * GERD on PPI * Hypertension-restart atenolol/diltiazem once systolics over 140 * DNR * Prophylaxis heparin Plan * continue broad antibiotic coverage * transfer to medical floor * awaiting space therapy recommendations * Physical therapy * pre-existing medical condition management as above Current Visit: Yes Medical - PN: Qual - VTE Deep Vein Thrombosis/Pulmonary Embolism Present on Admission: No
[2017-11-15 08:39] LABS: Anisocytosis 1+ (NONE SEEN); Eosinophils % (Manual) 5 % (0-7); Lymphocytes % 12 % (15-49); Metamyelocytes % 1 % (0-0); Monocytes % (Manual) 8 % (1-12); Platelet Estimate NORMAL (NORMAL); RBC Morphology ABNORM (NORMAL); Segmented Neutrophils % 74 % (38-78)
[2017-11-15] MEDS ORDERED: MULTIVIT,THER IRON,CA,FA & MIN 1 TABLET PO SCH (09:00)
--- NOTE | 2017-11-15 09:40 | Cat Scan Report ---
CLINICAL INFORMATION: Shortness of breath and bilateral airspace disease COMPARISON: None TECHNIQUE: 0.625 mm axial slices were obtained from the lung apices through the bases without intravenous contrast. 2.5 mm Sagittal, coronal and axial reformatted images were processed and reviewed at bone, lung and soft tissue windows. 7 mm axial MIP images were also reconstructed to optimize pulmonary nodule detection.The exam was performed using radiation dose optimization techniques including, but not limited to, automated exposure control, adjustment of the mA and/or kV according to patient size and use of iterative reconstruction technique. FINDINGS: Moderate parenchymal windows show moderate moderate-sized pleural plaques scattered throughout both thoracic regions. Some are partially calcified suggesting asbestos exposure. Moderate pleural parenchymal scarring in the anterior segment of the right upper lobe extending to one of the plaques. Mild patchy groundglass airspace disease scattered throughout both upper, lower and right middle lobes of uncertain etiology and chronicity. If acute, it may represent aspiration or infection. No effusions. Mediastinal windows show moderate cardiomegaly with extremely heavy calcific atherosclerotic plaque within the coronary arteries. Central pulmonary arteries are moderately enlarged: main pulmonary diameter 4.2 cm. Findings suggestive of pulmonary hypertension. There is a 16 mm precarinal lymph node appreciated, but there are no other regions of adenopathy. Esophagus is normal. Thoracic aorta is normal in contour and caliber with atherosclerotic plaque. Images through the abdomen show 3.2 cm adenoma in the right adrenal gland which is stable and visualized kidneys, right adrenal gland, spleen pancreas and liver are normal. Bone windows show moderate degenerative disease throughout the thoracic spine. Sternotomy changes noted IMPRESSION: 1. Vague scattered groundglass airspace disease throughout both upper, right middle and lower lobes of uncertain etiology and chronicity. If acute, it may represent aspiration or infection. 2. Scattered moderate-sized pleural plaques. Some are partially calcified suggesting asbestos exposure. Pleural parenchymal scarring in the anterior segment of the right upper lobe extends to one of the anterior plaques. 3. Moderate enlargement of the central pulmonary arteries suggesting pulmonary hypertension. 4. Moderate cardiomegaly with extremely heavy calcific atherosclerotic plaque in the coronary arteries. 5. 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
[2017-11-15] MEDS: DOCUSATE SODIUM 100 MG CAPSULE PO SCH ×2 (10:30→20:57)
[2017-11-15] MEDS: HEPARIN 5,000 UNIT/ML VIAL SQ SCH ×2 (10:30→20:57)
[2017-11-15] MEDS: 0.9 % SODIUM CHLORIDE 1,000 ML IV SCH (10:38)
[2017-11-15] MEDS ORDERED: MAGNESIUM SULFATE 2 GM/50 ML BAG IV PRN (10:48)
[2017-11-15] MEDS ORDERED: 0.9 % SODIUM CHLORIDE 1,000 ML IV SCH (10:48)
[2017-11-15] MEDS ORDERED: ONDANSETRON 4 MG/2 ML VIAL IV PRN (10:48)
[2017-11-15] MEDS ORDERED: POTASSIUM CHLORIDE 20 MEQ PACKET PO PRN (10:48)
[2017-11-15] MEDS ORDERED: MAGNESIUM HYDROXIDE 30 ML ORAL.SUSP PO PRN (10:48)
[2017-11-15] MEDS: FUROSEMIDE 20 MG TABLET PO SCH ×2 (11:39→15:16)
[2017-11-15] MEDS: POTASSIUM CHLORIDE 10 MEQ TABLET PO SCH ×2 (11:39→16:58)
[2017-11-15] MEDS: FERROUS SULFATE 325 MG TABLET PO SCH ×2 (11:39→16:58)
[2017-11-15] MEDS: DILTIAZEM 120 MG CAP.XL.24H PO SCH (11:43)
[2017-11-15] MEDS: ISOSORBIDE MONONITRATE 60 MG TAB.XL.24H PO SCH (11:43)
[2017-11-15] MEDS: ASPIRIN 81 MG TAB.CHEW PO SCH (11:43)
[2017-11-15] MEDS: SPIRONOLACTONE 25 MG TABLET PO SCH (11:46)
[2017-11-15] MEDS: SILVER SULFADIAZINE CREAM.TOP 25GM TOPICAL SCH ×2 (11:46→20:57)
[2017-11-15] MEDS: TAMSULOSIN 0.4 MG CAPSULE PO SCH (11:46)
[2017-11-15] MEDS: ACETAMINOPHEN 325 MG TABLET PO PRN ×2 (16:58→19:37)
[2017-11-15] MEDS ORDERED: NOREPINEPHRINE BITARTRATE 16 MG in 0.9 % SODIUM CHLORIDE 234 ML IV SCH (18:21)
[2017-11-15] MEDS ORDERED: SENNOSIDES/DOCUSATE SODIUM 1 TAB TABLET PO SCH (21:00)
[2017-11-15] MEDS ORDERED: SIMVASTATIN 20 MG TABLET PO SCH (21:00)
[2017-11-15] MEDS ORDERED: PANTOPRAZOLE 40 MG TABLET PO SCH (21:00)
[2017-11-16] MEDS: IPRATROPIUM/ALBUTEROL 3 ML AMPUL.NEB NEB SCH ×3 (03:20→10:51)
[2017-11-16 05:18] LABS: Mean Cell Volume 87.8 fL (80.0-100.0); Mean Corpuscular HGB Conc 33.2 g/dL (31.0-36.0); Mean Corpuscular Hemoglobin 29.1 pg (26.0-34.0); Platelet Count 170 K/mcL (140-440); RBC 3.58 M/mcL (4.50-5.90)
[2017-11-16] MEDS: 0.9 % SODIUM CHLORIDE 10 ML SYRINGE IV SCH (05:36)
[2017-11-16] MEDS: PIPERACILLIN SODIUM/TAZOBACTAM 2.25 GM in DEXTROSE 5% IN WATER 50 ML IV SCH ×3 (05:36→11:25)
[2017-11-16 05:46] LABS: ALT/SGPT 14 U/l (0-40); Albumin/Globulin Ratio 0.9 (1.0-2.3); Alkaline Phosphatase 75 U/L (39-117); Bilirubin,Direct < 0.2 mg/dL (0.0-0.3); Blood Urea Nitrogen 22 mg/dl (8-23); Gamma Glutamyl Transpeptidase 22 U/L (8-61); Uric Acid 6.6 mg/dL (2.5-8.0)
[2017-11-16 06:35] LABS: Anisocytosis 1+ (NONE SEEN); Eosinophils % (Manual) 3 % (0-7); Lymphocytes % 18 % (15-49); Metamyelocytes % 1 % (0-0); Monocytes % (Manual) 10 % (1-12); Platelet Estimate NORMAL (NORMAL); RBC Morphology ABNORM (NORMAL); Segmented Neutrophils % 68 % (38-78)
[2017-11-16] MEDS: HEPARIN 5,000 UNIT/ML VIAL SQ SCH (08:45)
[2017-11-16] MEDS: FUROSEMIDE 20 MG TABLET PO SCH (08:45)
[2017-11-16] MEDS: DILTIAZEM 120 MG CAP.XL.24H PO SCH (08:46)
[2017-11-16] MEDS: SPIRONOLACTONE 25 MG TABLET PO SCH (08:46)
[2017-11-16] MEDS: FERROUS SULFATE 325 MG TABLET PO SCH (08:46)
[2017-11-16] MEDS: TAMSULOSIN 0.4 MG CAPSULE PO SCH (08:46)
[2017-11-16] MEDS: POTASSIUM CHLORIDE 10 MEQ TABLET PO SCH (08:46)
[2017-11-16] MEDS: ASPIRIN 81 MG TAB.CHEW PO SCH (08:47)
[2017-11-16] MEDS: DOCUSATE SODIUM 100 MG CAPSULE PO SCH (08:47)
[2017-11-16] MEDS: ISOSORBIDE MONONITRATE 60 MG TAB.XL.24H PO SCH (08:49)
[2017-11-16] MEDS ORDERED: MULTIVIT,THER IRON,CA,FA & MIN 1 TABLET PO SCH (09:00)
--- NOTE | 2017-11-16 10:40 | Discharge Summary ---
Medical - DS: Prov Patient information: Note initiated : 11/16/17 at 10:37 am Service Date, if different from initiated Date: [] Patient: Laz Junior 87 y/o M admitted on 11/14/17 for Weak/Pneumonia. Chief Complaint: [] Date of admission: 11/14/17 17:58 Discharge date: 11/16/17 Primary care physician: Rob Robison Admitting clinician: Giovani Lerma Consults: 11/14/17 15:42 Consult to Physician [CONS] Stat Comment: Consulting Provider: Giovani Lerma Reason For Exam: Physician to Consult Discharging clinician: Duane Alvarez Medical - DS: Meds - Discharge Medications Prescriptions: Amoxicillin/Potassium Clav [Augmentin] 875 mg PO Q12H #10 tab Active and Home Medications: Home Medications niacin ER 500 mg tablet,extended release 24 hr 500 mg PO QHS #30 tab 11/20/16 [ Rx Confirmed 11/14/17 Last Taken Unknown] acetaminophen 325 mg capsule 650 mg PO Q6H PRN cap 09/25/17 [History Confirmed 11/14/17 Last Taken Unknown] magnesium hydroxide 400 mg/5 mL oral suspension 30 ml PO ONCE PRN ml 09/25/17 [ History Confirmed 11/14/17 Last Taken Unknown] aspirin 81 mg tablet,delayed release 81 mg PO QDAY 10/24/17 [History Confirmed 11/14/17 Last Taken Unknown] atenolol 25 mg tablet 25 mg PO QAM #30 tab 10/24/17 [Rx Confirmed 11/14/17 Last Taken Unknown] bacitracin 500 unit/gram topical ointment 1 applic TOPICAL .COMPLEX #30 g [Rx Confirmed 11/14/17 Last Taken Unknown] furosemide 20 mg tablet 20 mg PO BID #60 tab 10/24/17 [Rx Confirmed 11/14/17 Last Taken Unknown] isosorbide mononitrate ER 60 mg tablet,extended release 24 hr 60 mg PO QAM #30 tab 10/24/17 [Rx Confirmed 11/14/17 Last Taken Unknown] polyethylene glycol 3350 17 gram/dose oral powder See Label Instructions PO .COMPLEX PRN #238 g 10/24/17 [Rx Confirmed 11/14/17 Last Taken Unknown] potassium chloride ER 10 mEq tablet,extended release 10 meq PO BID #60 tab 10/24 [Rx Confirmed 11/14/17 Last Taken Unknown] silver sulfadiazine 1 % topical cream 1 applic TOPICAL BID #50 g 10/24/17 [Rx Confirmed 11/14/17 Last Taken Unknown] simvastatin 20 mg tablet 20 mg PO QPM #30 tab 10/24/17 [Rx Confirmed 11/14/17 Last Taken Unknown] sodium phosphates 19 gram-7 gram/118 mL enema 118 ml OH ONCE PRN #133 ml [Rx Confirmed 11/14/17 Last Taken Unknown] spironolactone 25 mg tablet 25 mg PO QDAY #30 tab 10/24/17 [Rx Confirmed Last Taken Unknown] tamsulosin 0.4 mg capsule 0.4 mg PO QDAY #30 cap 10/24/17 [Rx Confirmed Last Taken Unknown] diltiazem CD 120 mg capsule,extended release 24 hr 120 mg PO QDAY #30 cap [Rx Confirmed 11/14/17 Last Taken Unknown] pantoprazole 40 mg tablet,delayed release 40 mg PO HS #30 tab 10/25/17 [Rx Confirmed 11/14/17 Last Taken Unknown] cholecalciferol (vitamin D3) 2,000 unit capsule 2,000 unit PO QDAY #30 cap 11/06 [Rx Confirmed 11/14/17 Last Taken Unknown] ferrous sulfate 325 mg (65 mg iron) tablet 325 mg PO BID #60 tab 11/06/17 [Rx Confirmed 11/14/17 Last Taken Unknown] Medical - DS: Hosp Hospital course: Mr. Junior is a 87 year old M resident of [facility] and carries a history of CAD/chronic kidney disease stage III comes in with his and daughter with symptoms of progressive weakness confusion. Patient has been feeling unwell over the last 6-7 days. He went to [place] today for scalp basal cell cancer removal at dermatology clinic. However family got concerned due to progressive weakness and confusion. He was subsequently brought into the ER. Initial workup was significant for bilateral chest infiltrates on imaging. UA reveals pyuria.EKG is unremarkable. in light of pneumonia and acute mental status he was admited to the hospital for further management. He also had ongoing bleeding from the scalp excision., The patient was treated with broad spectrum antibiotics, for his possible UTI and PNA. He was on zosyn, he responded well to treatment, his blood and urine cultures have been negative. At the time of discharge he is able to tolerate po diet well, ambulate without any issues. He will be discharged to assisted living facility with oral antibiotics for another 5 days (augmentin) Scalp bleeding was present during the hospital stay, secondary to recent excision. DR kenney evaluated the patient and placed few sutures on the scalp. Bleeding did stop, but pt will need to be seen in Dr Chisholm clinic or ER or PCP for suture removal. The pt has acute on chr worsening of renal failure,on presentation, creat at the time of discharge is 1.8, whic is his near baseline. Rest of the stay in the hospital was uneventful, no changes are being done to the patient's home medication list. Discharge diagnosis: Aspiration pna, uti - Time Spent with Patient Total time spent providing and/or coordinating discharge services: Greater than 30 minutes Medical - DS: Exam - Constitutional Vitals: Vital Signs Temp Pulse Pulse Resp BP BP Pulse Ox 11/16/17 06:44 77 18 11/16/17 06:36 98.5 F 16 146/81 96 11/16/17 04:00 98.0 F 70 20 147/78 96 11/16/17 03:25 68 18 11/15/17 23:56 142/55 11/15/17 23:43 98.1 F 73 20 161/67 95 11/15/17 23:11 61 16 11/15/17 20:00 98.1 F 65 18 146/99 97 11/15/17 19:24 67 18 96 11/15/17 15:34 98.1 F 16 133/78 96 11/15/17 15:29 90 20 11/15/17 12:00 98.2 F 16 144/73 98 Intake and Output 11/15/17 11/16/17 11/16/17 21:59 05:59 13:59 Intake Total 458 / 458 50 / 50 Output Total 435 / 435 475 / 475 Balance -425 / -425 Intake: IV 218 / 218 50 / 50 Zosyn 2.25 gm In Dextrose 5% in 50 / 50 50 / 50 Water 50 ml @ 100 mls/hr IV Q6H [facility] Rx#:[id number] Oral 240 / 240 Output: Void Amount 435 / 435 475 / 475 Other: Meal Dinner Jello Percent of Meal Consumed 100% 100% Feeding Ability Independent Stool Size Small Stool Color Brown Stool Consistency Elvi # Voids 1 1 # Bowel Movements 1 # of times incontinent of 0 Bowels Weight 191 lb 191 lb Additional comments: Constitutional; Afebrile, cooperative, alert, not in distress. Eyes- No icterus, , No periorbital swelling Ears- Ext ear normal, hearing normal to conversation. Neck- Midline trachea, supple Respiratory system: Air Entry equal on both sides, No crackles or wheezing, no rhonchi. CVS- Rate rhythm regular, S1,S2 heard, no gallop, no rub. Abdomen- Soft nontender abdomen, no organomegaly, no tenderness, no guarding or rigidity, DISPENSARY TECHNICIAN- AOOx3, moving all extremities, no gross focal deficit noted. Medical - DS: Data Labs on day of discharge: Labs from last 24 hours 11/16/17 11/16/17 04:05 04:05 WBC 6.5 RBC 3.58 L Hgb 10.4 L Hct 31.4 L MCV 87.8 MCH 29.1 MCHC 33.2 RDW 17.0 H Plt Count 170 MPV 9.4 Total Counted 100 Seg Neutrophils % 68 Band Neutrophils % Not Reportable Lymphocytes % 18 Monocytes % (Manual) 10 Eosinophils % (Manual) 3 Metamyelocytes % 1 H Platelet Estimate Normal RBC Morphology Abnorm A Anisocytosis 1+ A Sodium 137 Potassium 4.6 Chloride 99 Carbon Dioxide 28 Anion Gap 10.0 BUN 22 Creatinine 1.8 H GFR Calculation 33 Glucose 113 H Uric Acid 6.6 Calcium 10.3 Phosphorus 2.7 Magnesium 2.1 Total Bilirubin 0.3 Direct Bilirubin < 0.2 GGT 22 AST 22 ALT 14 Alkaline Phosphatase 75 Lactate Dehydrogenase 160 Total Protein 6.3 Albumin 3.0 L Globulin 3.3 Albumin/Globulin Ratio 0.9 L Triglycerides 141 Preliminary micro results at discharge 11/14/17 14:50 Blood Culture - Preliminary Blood 11/14/17 14:57 Blood Culture - Preliminary Blood Medical - DS: A/P - Patient/Caregiver Discharge Instructions Activity: increase activity as tolerated Diet: Cardiac Additional Instructions: Aspiration precautions, sit upright with each meal. Follow up with PCP in 1 week Apply mupirocin twice daily to the wounds, as directed by your handbag parts cutter. Follow up with Dr Kenney/ Surgery for suture removal in 1 week, Your PCP may also be able to remove the sutures in the scalp, should he chose to. Go to the ER if worsening condition, fever chest pain shortness of breath or any other acute concerning symptom. - Follow up Plan Follow up with: Rob Robison MD [Primary Care Provider] - Disposition: Home, Self-Care Prognosis: Fair Rehab Potential: Fair I certify that the patient requires SNF services: No Overall status at discharge: patient is progressing back to baseline Medical - DS: Qual - VTE Deep Vein Thrombosis/Pulmonary Embolism Present on Admission: No
== END 2017-11-16 13:30 | disposition home or self-care (01) | DRG 178 ==
LOC: ED 13:55 → ICU 17:58
PROVIDERS: ADMIT Internal Medicine; ATTEND Internal Medicine